=== PATIENT | male | born 1955 | race Caucasian/White ===

== ENCOUNTER 2020-01-26 14:50 | Inpatient (IN) | payer BC, OTHER ==
--- NOTE | 2020-01-26 15:01 | PDOC ---
Rapid Medical Evaluation Time Seen by Provider: 01/26/20 14:57 Medical Evaluation: 01/26/20 15:01 I have performed a brief in-person evaluation of this patient. CC: dysuria, headache and chills PE: T-100.0. Lungs CTAB. tremulous. Skin moist. No CVAT. Orders: FSBG. sepsis w/u. Patient will proceed to ED for further evaluation. 01/26/20 15:02 Discharge Disposition - Diagnosis Dysuria - Referrals - Patient Instructions - Post Discharge Activity
[2020-01-26] MEDS ORDERED: SODIUM CHLORIDE 0.9% 1000 ML INFUS.BAG IV SCH ×2 (15:15→15:16)
[2020-01-26] MEDS ORDERED: ACETAMINOPHEN INJECTION 100 ML IVPB ONE (15:29)
[2020-01-26] MEDS ORDERED: ACETAMINOPHEN 1000 MG/100 ML VIAL (NON FORMULARY) IVPB ONE (15:29)
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
[2020-01-26] MEDS ORDERED: PIPERACILLIN/TAZOB 4.5 GM 4.5 GM in DEXTROSE 5%-WATER 100 ML IVPB ONE (15:49)
[2020-01-26] MEDS: SODIUM CHLORIDE 0.9% 1000 ML INFUS.BAG IV SCH (15:53)
[2020-01-26] MEDS ORDERED: PIPERACILLIN/TAZOB 4.5 GM 4.5 GM/100 ML BAG IVPB ONE (15:55)
--- NOTE | 2020-01-26 15:56 | PDOC ---
Attending Attestation - Resident Resident Name: MagalyPamella - ED Attending Attestation I have performed the following: I have examined & evaluated the patient, The case was reviewed & discussed with the resident, I agree w/resident's findings & plan - HPI HPI: 01/26/20 15:51 64-year-old male history of diabetes presents with generalized weakness and confusion in the setting of fever for the last 24 hours, only localizing symptoms are polyuria and dysuria, decreased appetite today but otherwise normal physical activity, brought in by for severe generalized weakness. No recent travel, no known sick contacts, no other complaints. - Physicial Exam PE: 01/26/20 15:52 105.7 rectal fever, tachycardia, elevated blood pressure, O2 sat within normal limits on room air Initially very weak and only arousable to physical stimuli, became more alert and coherent and responsive once in stretcher with fluids initiated Warm to touch, atraumatic Neck supple, dry mucosa Heart is regular tachycardia, lungs are clear Abdomen is soft/nontender/nondistended. No notable bladder distention, no CVA tenderness Neuro nonfocal, no rash - Critical Care Time Total Critical Care Time: 70 Critical Care Statement: The care of this patient involved high complexity decision making to prevent further life threatening deterioration of the patient 's condition and/or to evaluate & treat vital organ system(s) failure or risk of failure. - Medical Decision Making 01/26/20 15:54 64-year-old male with diabetes presents with sepsis/altered mental status, possible urinary source, cardiopulmonary exam is within normal limits. Blood pressure stable. Sepsis protocol initiated IV fluids, antipyretics IV antibiotics initiated EKG, chest x-ray Reassess, admit 01/26/20 16:28 no leukocytosis, pH normal, chem pending. UA consistent with UTI, cxr clear iv abx, iv fluids admit Heart Score/ECG Review #1 ECG reviewed & interpreted by me at: 15:25 General ECG Interpretation: Sinus Rhythm (tachy at 121), Normal Intervals (qtc 414), No acute ischemic changes (inf and lateral ST depression without CESIA.) Discharge - Discharge Information Problems reviewed: Yes Clinical Impression/Diagnosis: Dysuria Sepsis Qualifiers: Sepsis type: sepsis due to unspecified organism Sepsis acute organ dysfunction status: unspecified Qualified Code(s): A41.9 - Sepsis, unspecified organism UTI (urinary tract infection) Qualifiers: Urinary tract infection type: site unspecified Hematuria presence: without hematuria Qualified Code(s): N39.0 - Urinary tract infection, site not specified Condition: Fair - Follow up/Referral - Patient Discharge Instructions - Post Discharge Activity
[2020-01-26 15:58] LABS: VENOUS BASE EXCESS -2.2 mmol/L (-2-2); VENOUS PCO2 47.3 mmHg (38-52); VENOUS PH 7.329 (7.310-7.410)
[2020-01-26 16:03] LABS: BASO % 0.5 % (0-2.0); EOS % 0.2 % (0-4.5); HEMATOCRIT 41.7 % (35.4-49); HEMOGLOBIN 14.1 GM/dL (11.7-16.9); MCH 31.3 pg (25.7-33.7); MCHC 33.7 g/dl (32.0-35.9); MEAN CELL VOLUME 92.7 fl (80-96); MEAN PLT VOLUME 8.9 fl (7.5-11.1); MONO % 0.7 % (3.8-10.2); NEUT % 65.6 % (42.8-82.8); PLATELET COUNT 116 K/MM3 (134-434); RDW 13.2 % (11.9-15.9); WHITE BLOOD COUNT 4.6 K/mm3 (4.0-10.0)
[2020-01-26 16:07] LABS: EPI CELLS 2 /uL (0-25.1); HYALINE CASTS 9 /uL (0-3.1); PH,URINE 5.5 (5.0-8.0); URINE APPEARANCE CLEAR; URINE BACTERIA 1554 /uL (0-1359); URINE BILIRUBIN 1+ (NEGATIVE); URINE COLOR ORANGE; URINE GLUCOSE (UA) 3+ (NEGATIVE); URINE KETONE TRACE (NEGATIVE); URINE LEUK ESTERASE TRACE (NEGATIVE); URINE NITRITE NEGATIVE (NEGATIVE); URINE PROTEIN 2+ (NEGATIVE); URINE RBC 53 /uL (0-23.9); URINE WBC 332 /uL (0-25.8)
[2020-01-26 16:09] LABS: INR 1.37 (0.83-1.09); PROTHROMBIN TIME (PATIENT) 16.2 SEC (9.7-13.0)
[2020-01-26 16:12] LABS: ACTIVATED PTT 30.3 SECONDS (25.2-36.5)
[2020-01-26 16:40] LABS: ALBUMIN 3.9 g/dl (3.4-5.0); BLOOD UREA NITROGEN 20.2 mg/dL (7-18); CALCIUM 9.2 mg/dL (8.5-10.1); CREATININE 1.2 mg/dL (0.55-1.3); POTASSIUM 3.6 mmol/L (3.5-5.1)
[2020-01-26 16:42] LABS: BILIRUBIN,TOTAL 2.6 mg/dL (0.2-1); TOT PROT 8.7 g/dl (6.4-8.2)
[2020-01-26] MEDS ORDERED: LACTATED RINGERS SOLUTION 1000 ML INFUS.BAG IV ONE (16:46)
[2020-01-26] MEDS ORDERED: KETOROLAC TROMETHAMINE 30 MG/1 ML VIAL IVPUSH ONE (17:06)
[2020-01-26] MEDS ORDERED: KETOROLAC TROMETHAMINE 30 MG/1 ML VIAL ONE (17:11)
--- NOTE | 2020-01-26 17:31 | HP ---
CHIEF COMPLAINT: fever PCP: HISTORY OF PRESENT ILLNESS: Patient is a 64 y/o male with a history of DM and Hep C (treated 3 years ago)who presents for fever and pain with urination. Patient reports he has been having these symptoms for a few days, he has been urinating much more frequently and has burning with urination. Patient has no back pain, and nly felt chills upon coming to the hospital in the rain. Has not had this before and does not take any medication for DM. ER course was notable for: (1) (2) (3) Recent Travel: PAST MEDICAL HISTORY: DM PAST SURGICAL HISTORY: testicular abscess drainage in the past Social History: Smoking: denies Alcohol: denies Drugs: denies Allergies No Known Allergies Allergy (Unverified 01/26/20 15:09) HOME MEDICATIONS: REVIEW OF SYSTEMS CONSTITUTIONAL: Absent: fever, chills, diaphoresis, generalized weakness, malaise, loss of appetite, weight change HEENT: Absent: rhinorrhea, nasal congestion, throat pain, throat swelling, difficulty swallowing, mouth swelling, ear pain, eye pain, visual changes CARDIOVASCULAR: Absent: chest pain, syncope, palpitations, irregular heart rate, lightheadedness, peripheral edema RESPIRATORY: Absent: cough, shortness of breath, dyspnea with exertion, orthopnea, wheezing, stridor, hemoptysis GASTROINTESTINAL: Absent: abdominal pain, abdominal distension, nausea, vomiting, diarrhea, constipation, melena, hematochezia GENITOURINARY: dysuria, frequency, urgency Absent: , hesitancy, hematuria, flank pain, genital pain MUSCULOSKELETAL: Absent: myalgia, arthralgia, joint swelling, back pain, neck pain SKIN: Absent: rash, itching, pallor HEMATOLOGIC/IMMUNOLOGIC: Absent: easy bleeding, easy bruising, lymphadenopathy, frequent infections ENDOCRINE: Absent: unexplained weight gain, unexplained weight loss, heat intolerance, cold intolerance NEUROLOGIC: Absent: headache, focal weakness or paresthesias, dizziness, unsteady gait, seizure, mental status changes, bladder or bowel incontinence PSYCHIATRIC: Absent: anxiety, depression, suicidal or homicidal ideation, hallucinations. PHYSICAL EXAMINATION Vital Signs Temperature 102.3 F H 01/26/20 17:05 Pulse Rate 109 H 01/26/20 15:06 Respiratory Rate 18 01/26/20 15:06 Blood Pressure 112/58 L 01/26/20 17:03 O2 Sat by Pulse Oximetry (%) 99 01/26/20 15:06 GENERAL: Awake, alert, and fully oriented, in no acute distress. HEAD: Normal with no signs of trauma. EYES: Pupils equal, round and reactive to light, extraocular movements intact, s EARS, NOSE, THROAT: Ears normal, nares patent, oropharynx clear without exudates. Moist mucous membranes. NECK: Normal range of motion, supple without lymphadenopathy, JVD, or masses. LUNGS: Breath sounds equal, clear to auscultation bilaterally. No wheezes, and no crackles. No accessory muscle use. HEART: Regular rate and rhythm, normal S1 and S2 without murmur, rub or gallop. ABDOMEN: Soft, nontender, not distended, normoactive bowel sounds, no guarding, no rebound, no masses. No hepatomegaly or splenomegaly. some fullness of lower abdomen MUSCULOSKELETAL: Normal range of motion at all joints. No bony deformities or tenderness. NEGATIVE CVA tenderness. LOWER EXTREMITIES: No peripheral edema. NEUROLOGICAL: Cranial nerves II-XII intact. Normal speech. Normal gait. SKIN: vitiligo on face CBC, BMP 01/26/20 15:38 01/26/20 15:38 ASSESSMENT/PLAN: Patient is a 64 y/o male with a history of DM and Hep C (treated 3 years ago)who is admitted for UTI. #sepsis 2/2 to UTI - AMS resolved quickly with 1 L fluid - UA grossly positive, f/u ucx - continue Zosyn to coverage for pseudomonas with uncontrolled DM - lactic high at 6, will continue to trend - coninue NS @ 100 - f/u renal and bladder US, want to r/o enlarged prostate - f/u ID #DM - f/u A1C - continue SS - patient not on nay treatment for DM, will need medication as outpatient #DVT ppx: Lovenox FEN - diabetic diet Dispo: monitor on med surg Family Medical History Family History: As Documented Visit type - Medication Review Med list reviewed for High Risk Meds patients 65 and older: Yes - Emergency Visit Emergency Visit: Yes ED Registration Date: 01/26/20 Care time: The patient presented to the Emergency Department on the above date and was hospitalized for further evaluation of their emergent condition. - New Patient This patient is new to me today: Yes Date on this admission: 01/27/20 - Critical Care Critical Care patient: No ATTENDING PHYSICIAN STATEMENT I saw and evaluated the patient. I reviewed the resident's note and discussed the case with the resident. I agree with the resident's findings and plan as documented. SUBJECTIVE: OBJECTIVE: ASSESSMENT AND PLAN:
[2020-01-26] MEDS: SODIUM CHLORIDE 1,000 ML IV SCH (18:03)
[2020-01-26] MEDS ORDERED: FLU VACCINE (FLULAVAL) PF 60 MCG/0.5 ML SYRINGE 2020-2021 IM ONE (20:49)
[2020-01-26 22:12] LABS: CHOLESTEROL 150 mg/dL (50-200); HDL CHOLESTEROL 37 mg/dL (40-60); LDL CHOLESTEROL (ONLY SJRH) 112 mg/dL (5-100); TRIGLYCERIDES 105 mg/dL (0-150)
--- NOTE | 2020-01-26 22:40 | PN ---
Teaching Attending Note Name of Resident: Farideh Mckee ATTENDING PHYSICIAN STATEMENT I saw and evaluated the patient. I reviewed the resident's note and discussed the case with the resident. I agree with the resident's findings and plan as documented. SUBJECTIVE: Patient seen and examined at bedside, admitted for sepsis 2/2 UTI, also has h/o T2DM uncontrolled lost to follow up w/ PCP. OBJECTIVE: GA vitiligo present on face, AAOx3, calm, NAD HEENT NC/AT, EOMI, neck supple, no acanthosis, no oral thrush Chest CTAB, no crackles CVS s1, s2+, RRR Abd slightly distended, NT, BS+ Ext no LE edema, no calf tenderness no CVA tenderness, mild suprapubic TTP Vital Signs (72 hours) 01/26/20 01/26/20 01/26/20 15:06 15:43 17:03 Temperature 100.0 F H 105.7 F H Pulse Rate 109 H Pulse Rate [ Right] Respiratory 18 Rate Blood Pressure 172/88 H Blood Pressure 112/58 L [Left Arm] O2 Sat by Pulse 99 Oximetry (%) 01/26/20 01/26/20 01/26/20 17:05 18:26 20:36 Temperature 102.3 F H 100.0 F H 99 F Pulse Rate 92 H Pulse Rate [ 100 H Right] Respiratory 19 19 Rate Blood Pressure 101/44 L Blood Pressure 122/89 [Left Arm] O2 Sat by Pulse 100 97 Oximetry (%) 01/26/20 01/27/20 01/27/20 20:56 01:00 05:00 Temperature 98.6 F 98.9 F Pulse Rate 74 66 Pulse Rate [ Right] Respiratory 19 18 18 Rate Blood Pressure 91/56 L 102/62 Blood Pressure [Left Arm] O2 Sat by Pulse 97 95 97 Oximetry (%) 01/27/20 11:03 Temperature 99.5 F Pulse Rate 68 Pulse Rate [ Right] Respiratory 18 Rate Blood Pressure 112/67 Blood Pressure [Left Arm] O2 Sat by Pulse 98 Oximetry (%) Microbiology 01/26/20 15:38 Blood - Peripheral Venous Blood Culture - Preliminary Pending Organism 01/26/20 15:38 Blood - Peripheral Venous Blood Culture - Preliminary Pending Organism Laboratory Results - last 24 hr 01/26/20 01/26/20 01/26/20 15:38 15:38 15:38 WBC 4.6 RBC 4.50 Hgb 14.1 Hct 41.7 MCV 92.7 MCH 31.3 MCHC 33.7 RDW 13.2 Plt Count 116 L MPV 8.9 Absolute Neuts (auto) 3.0 Neutrophils % 65.6 Lymphocytes % 33.0 Monocytes % 0.7 L Eosinophils % 0.2 Basophils % 0.5 Nucleated RBC % 0 PT with INR 16.20 H INR 1.37 H PTT (Actin FS) 30.3 VBG pH POC VBG pCO2 POC VBG pO2 VBG HCO3 VBG O2 Sat (Angela) VBG Base Excess Sodium Potassium Chloride Carbon Dioxide Anion Gap BUN Creatinine Est GFR (CKD-EPI)AfAm Est GFR (CKD-EPI)NonAf POC Glucometer Random Glucose Hemoglobin A1c % Lactic Acid Calcium Phosphorus Magnesium Total Bilirubin AST ALT Alkaline Phosphatase Creatine Kinase Troponin I < 0.02 Total Protein Albumin Triglycerides 105 Cholesterol 150 Total LDL Cholesterol 112 H HDL Cholesterol 37 L TSH 2.07 Urine Color Urine Appearance Urine pH Ur Specific [place] Urine Protein Urine Glucose (UA) Urine Ketones Urine Blood Urine Nitrite Urine Bilirubin Urine Urobilinogen Ur Leukocyte Esterase Urine WBC (Auto) Urine RBC (Auto) Urine Casts (Auto) U Epithel Cells (Auto) Urine Bacteria (Auto) 01/26/20 01/26/20 01/26/20 15:38 15:38 15:38 WBC RBC Hgb Hct MCV MCH MCHC RDW Plt Count MPV Absolute Neuts (auto) Neutrophils % Lymphocytes % Monocytes % Eosinophils % Basophils % Nucleated RBC % PT with INR INR PTT (Actin FS) VBG pH POC VBG pCO2 POC VBG pO2 VBG HCO3 VBG O2 Sat (Angela) VBG Base Excess Sodium 134 L Potassium 3.6 Chloride 99 Carbon Dioxide 24 Anion Gap 11 BUN 20.2 H Creatinine 1.2 Est GFR (CKD-EPI)AfAm 72.59 Est GFR (CKD-EPI)NonAf 62.63 POC Glucometer Random Glucose 241 H Hemoglobin A1c % Lactic Acid 6.4 H* Calcium 9.2 Phosphorus Magnesium Total Bilirubin 2.6 H AST 22 ALT 31 Alkaline Phosphatase 104 Creatine Kinase 74 Troponin I Total Protein 8.7 H Albumin 3.9 Triglycerides Cholesterol Total LDL Cholesterol HDL Cholesterol TSH Urine Color [place] Urine Appearance Clear Urine pH 5.5 Ur Specific [place] 1.035 Urine Protein 2+ H Urine Glucose (UA) 3+ H Urine Ketones Trace H Urine Blood 1+ H Urine Nitrite Negative Urine Bilirubin 1+ H Urine Urobilinogen 1.0 Ur Leukocyte Esterase Trace Urine WBC (Auto) 332 Urine RBC (Auto) 53 Urine Casts (Auto) 9 U Epithel Cells (Auto) 2 Urine Bacteria (Auto) 1554 01/26/20 01/26/20 01/26/20 15:38 18:04 18:26 WBC RBC Hgb Hct MCV MCH MCHC RDW Plt Count MPV Absolute Neuts (auto) Neutrophils % Lymphocytes % Monocytes % Eosinophils % Basophils % Nucleated RBC % PT with INR INR PTT (Actin FS) VBG pH 7.329 POC VBG pCO2 47.3 POC VBG pO2 23.4 L VBG HCO3 24.3 VBG O2 Sat (Angela) 37.0 L VBG Base Excess -2.2 L Sodium Potassium Chloride Carbon Dioxide Anion Gap BUN Creatinine Est GFR (CKD-EPI)AfAm Est GFR (CKD-EPI)NonAf POC Glucometer Random Glucose Hemoglobin A1c % 9.8 H Lactic Acid 2.6 H* Calcium Phosphorus Magnesium Total Bilirubin AST ALT Alkaline Phosphatase Creatine Kinase Troponin I Total Protein Albumin Triglycerides Cholesterol Total LDL Cholesterol HDL Cholesterol TSH Urine Color Urine Appearance Urine pH Ur Specific [place] Urine Protein Urine Glucose (UA) Urine Ketones Urine Blood Urine Nitrite Urine Bilirubin Urine Urobilinogen Ur Leukocyte Esterase Urine WBC (Auto) Urine RBC (Auto) Urine Casts (Auto) U Epithel Cells (Auto) Urine Bacteria (Auto) 01/27/20 01/27/20 01/27/20 05:44 07:35 07:35 WBC 10.4 H RBC 3.82 L Hgb 11.9 Hct 35.1 L D MCV 91.9 MCH 31.1 MCHC 33.9 RDW 13.2 Plt Count 79 L D MPV 9.4 Absolute Neuts (auto) 7.5 Neutrophils % 72.0 Lymphocytes % 17.7 D Monocytes % 8.9 D Eosinophils % 1.1 D Basophils % 0.3 Nucleated RBC % 0 PT with INR INR PTT (Actin FS) VBG pH POC VBG pCO2 POC VBG pO2 VBG HCO3 VBG O2 Sat (Angela) VBG Base Excess Sodium 137 Potassium 3.5 Chloride 107 Carbon Dioxide 26 Anion Gap 4 L BUN 18.2 H Creatinine 0.9 Est GFR (CKD-EPI)AfAm 102.79 Est GFR (CKD-EPI)NonAf 88.69 POC Glucometer 164 Random Glucose 159 H Hemoglobin A1c % Lactic Acid Calcium 8.3 L Phosphorus 2.0 L Magnesium 1.8 Total Bilirubin 1.6 H AST 22 ALT 22 Alkaline Phosphatase 69 Creatine Kinase Troponin I Total Protein 6.6 Albumin 2.9 L Triglycerides Cholesterol Total LDL Cholesterol HDL Cholesterol TSH Urine Color Urine Appearance Urine pH Ur Specific [place] Urine Protein Urine Glucose (UA) Urine Ketones Urine Blood Urine Nitrite Urine Bilirubin Urine Urobilinogen Ur Leukocyte Esterase Urine WBC (Auto) Urine RBC (Auto) Urine Casts (Auto) U Epithel Cells (Auto) Urine Bacteria (Auto) 01/27/20 10:55 WBC RBC Hgb Hct MCV MCH MCHC RDW Plt Count MPV Absolute Neuts (auto) Neutrophils % Lymphocytes % Monocytes % Eosinophils % Basophils % Nucleated RBC % PT with INR INR PTT (Actin FS) VBG pH POC VBG pCO2 POC VBG pO2 VBG HCO3 VBG O2 Sat (Angela) VBG Base Excess Sodium Potassium Chloride Carbon Dioxide Anion Gap BUN Creatinine Est GFR (CKD-EPI)AfAm Est GFR (CKD-EPI)NonAf POC Glucometer 190 Random Glucose Hemoglobin A1c % Lactic Acid Calcium Phosphorus Magnesium Total Bilirubin AST ALT Alkaline Phosphatase Creatine Kinase Troponin I Total Protein Albumin Triglycerides Cholesterol Total LDL Cholesterol HDL Cholesterol TSH Urine Color Urine Appearance Urine pH Ur Specific [place] Urine Protein Urine Glucose (UA) Urine Ketones Urine Blood Urine Nitrite Urine Bilirubin Urine Urobilinogen Ur Leukocyte Esterase Urine WBC (Auto) Urine RBC (Auto) Urine Casts (Auto) U Epithel Cells (Auto) Urine Bacteria (Auto) Home Medications Medication Instructions Recorded NK [No Known Home Medication] 01/26/20 Current Medications Generic Name Dose Route Start Last Admin Trade Name [place] PRN Reason Stop Dose Admin Acetaminophen 650 mg 01/26/20 17:21 Tylenol - PO Q4H PRN PAIN LEVEL 6-10 Enoxaparin Sodium 40 mg 01/27/20 10:00 01/27/20 10:50 Lovenox - SQ 40 mg DAILY ISAAK Administration Sodium Chloride 1,000 mls @ 100 mls/hr 01/26/20 17:30 01/27/20 06:17 Normal Saline - IV 01/28/20 03:29 100 mls/hr ASDIR ISAAK Administration Piperacillin Sod/Tazobactam 50 mls @ 100 mls/hr 01/27/20 10:00 01/27/20 10:50 Sod 3.375 gm/ Dextrose IVPB 100 mls/hr Q8H-IV ISAAK Administration Protocol Insulin Aspart 0 vial 01/27/20 07:00 01/27/20 10:57 Novolog Vial Sliding Scale - SQ 2 unit TIDAC ISAAK Administration Protocol Sodium Chloride 2,000 ml 01/26/20 15:41 01/26/20 15:53 Normal Saline - IV 2,000 ml ONCE ISAAK Administration ASSESSMENT AND PLAN: 64 M Sepsis 2/2 UTI T2DM uncontrolled Lactic acidosis Vitiligo CORY on CKD Cholestasis Plan: Hydrate aggressively and trend LA Send a1c/lipids/TSH panel Obtain renal/bladder US w/ PVR to r/o obstruction IV Zosyn for sepsis (to cover for Pseudomonas given T2DM) ID evaluation Renal evaluation for CORY/proteinuria DVT ppx: lovenox SC
[2020-01-27] MEDS ORDERED: PIPERACILLIN/TAZOBACTAM 4.5 GM VIAL IVPB ONE ×2 (01:03→01:10)
[2020-01-27] MEDS ORDERED: DEXTROSE 5%-WATER 100 ML IVPB ONE ×2 (01:03→01:10)
[2020-01-27] MEDS ORDERED: PIPERACILLIN/TAZOB 4.5 GM 4.5 GM in DEXTROSE 5%-WATER 100 ML IVPB SCH ×2 (01:15→02:00)
[2020-01-27] MEDS ORDERED: INSULIN (NOVOLOG) ASPART 100 UNITS/ML 10ML VIAL ONE ×2 (06:11→06:36)
[2020-01-27] MEDS: INSULIN SLIDING SCALE (NOVOLOG) 1 VIAL SQ SCH ×3 (06:16→17:44)
[2020-01-27] MEDS: SODIUM CHLORIDE 1,000 ML IV SCH (06:17)
[2020-01-27 08:25] LABS: ALBUMIN 2.9 g/dl (3.4-5.0); BILIRUBIN,TOTAL 1.6 mg/dL (0.2-1); BLOOD UREA NITROGEN 18.2 mg/dL (7-18); CALCIUM 8.3 mg/dL (8.5-10.1); CREATININE 0.9 mg/dL (0.55-1.3); MAGNESIUM 1.8 mg/dL (1.8-2.4); POTASSIUM 3.5 mmol/L (3.5-5.1)
[2020-01-27 08:27] LABS: BASO % 0.3 % (0-2.0); EOS % 1.1 % (0-4.5); HEMATOCRIT 35.1 % (35.4-49); HEMOGLOBIN 11.9 GM/dL (11.7-16.9); LYMPH % 17.7 % (8-40); MCH 31.1 pg (25.7-33.7); MCHC 33.9 g/dl (32.0-35.9); MEAN CELL VOLUME 91.9 fl (80-96); MEAN PLT VOLUME 9.4 fl (7.5-11.1); MONO % 8.9 % (3.8-10.2); PLATELET COUNT 79 K/MM3 (134-434); RBC 3.82 M/mm3 (4.00-5.60); RDW 13.2 % (11.9-15.9); TOT PROT 6.6 g/dl (6.4-8.2); WHITE BLOOD COUNT 10.4 K/mm3 (4.0-10.0)
--- NOTE | 2020-01-27 09:27 | CON.ID ---
Consult Consult Specialty:: infectious diseases Referred by:: hospitalist Reason for Consultation:: sepsis,gm megaitve abcteremia,fever - History of Present Illness Chief Complaint: fever,weakness History of Present Illness: 64 y/o male with a history of DM and Hep C (treated 3 years ago)who presents for fever and pain with urination. Patient reports he has been having these symptoms for a few days, he has been urinating much more frequently and has burning with urination. Patient has no back pain, and nly felt chills upon coming to the hospital in the rain. Has not had this before and does not take any medication for DM. patient was worked up and found to ahve positive blood cx and also still c/o of burning in urine - History Source History Provided By: Patient Limitations to Obtaining History: No Limitations - Smoking History Smoking history: Never smoked Have you smoked in the past 12 months: No Home Medications - Allergies Allergies/Adverse Reactions: Allergies Allergy/AdvReac Type Severity Reaction Status Date / Time No Known Allergies Allergy Unverified 01/26/20 15:09 - Home Medications Home Medications: Ambulatory Orders NK [No Known Home Medication] 01/26/20 Review of Systems - Review of Systems Constitutional: reports: Fever, Weakness, Other Eyes: reports: No Symptoms HENT: reports: No Symptoms, Ocular Prosthesis Cardiovascular: reports: No Symptoms Respiratory: reports: No Symptoms Gastrointestinal: reports: No Symptoms Genitourinary: reports: Burning, Other Musculoskeletal: reports: No Symptoms Integumentary: reports: No Symptoms Neurological: reports: No Symptoms Endocrine: reports: No Symptoms Hematology/Lymphatic: reports: No Symptoms Psychiatric: reports: No Symptoms Physical Exam Vital Signs: Vital Signs Temperature 98.9 F 01/27/20 05:00 Pulse Rate 66 01/27/20 05:00 Respiratory Rate 18 01/27/20 05:00 Blood Pressure 102/62 01/27/20 05:00 O2 Sat by Pulse Oximetry (%) 97 01/27/20 05:00 Constitutional: Yes: Calm, Mild Distress Eyes: Yes: Conjunctiva Clear HENT: Yes: Atraumatic, Normocephalic Neck: Yes: Supple, Trachea Midline Cardiovascular: Yes: Regular Rate and Rhythm Respiratory: Yes: Regular, CTA Bilaterally Gastrointestinal: Yes: Normal Bowel Sounds, Soft Musculoskeletal: Yes: WNL Extremities: Yes: WNL Neurological: Yes: Alert, Oriented Psychiatric: Yes: Alert, Oriented Labs: CBC, BMP 01/27/20 07:35 01/27/20 07:35 Imaging - Results Chest X-ray: Report Reviewed, Image Reviewed Ultrasound: Report Reviewed Assessment/Plan Problem List - Problems (1) Sepsis Code(s): A41.9 - SEPSIS, UNSPECIFIED ORGANISM Qualifiers: Sepsis type: sepsis due to unspecified organism Sepsis acute organ dysf unction status: unspecified Qualified Code(s): A41.9 - Sepsis, unspecified organism (2) Bacteremia Code(s): R78.81 - BACTEREMIA (3) Diabetes type 2, uncontrolled Code(s): E11.65 - TYPE 2 DIABETES MELLITUS WITH HYPERGLYCEMIA (4) Thrombocytopenia Code(s): D69.6 - THROMBOCYTOPENIA, UNSPECIFIED (5) Dysuria Code(s): R30.0 - DYSURIA (6) UTI (urinary tract infection) Code(s): N39.0 - URINARY TRACT INFECTION, SITE NOT SPECIFIED Qualifiers: Urinary tract infection type: site unspecified Hematuria presence: without hematuria Qualified Code(s): N39.0 - Urinary tract infection, site not specified plan patient is septic await for cx reports will start on zosyn await for identification of the bacteria monitor closely
[2020-01-27] MEDS ORDERED: PIPERACILLIN/TAZOBACTAM 3.375 GM VIAL IVPB ONE ×2 (10:44→16:49)
[2020-01-27] MEDS ORDERED: DEXTROSE 5%-WATER - 50 ML IVPB ONE ×2 (10:44→16:49)
[2020-01-27] MEDS: ENOXAPARIN NA (PORCINE) 40 MG/0.4 ML DISP.SYRIN SQ SCH (10:50)
[2020-01-27] MEDS: PIPERACILLIN/TAZOB 3.375 GM 3.375 GM in DEXTROSE 5%-WATER - 50 ML IVPB SCH ×3 (10:50→17:47)
--- NOTE | 2020-01-27 11:06 | EKG ---
Test Reason : Blood Pressure : / mmHG Vent. Rate : 121 BPM Atrial Rate : 121 BPM P-R Int : 156 ms QRS Dur : 092 ms QT Int : 292 ms P-R-T Axes : 062 055 015 degrees QTc Int : 414 ms SINUS TACHYCARDIA ABNORMAL ECG NO PREVIOUS ECGS AVAILABLE Confirmed by MD Adelso, Sma ([id number]) on 01/27/2020 11:05:34 AM Referred By: Confirmed By:Sam Darden MD
--- NOTE | 2020-01-27 13:11 | ECHO ---
Name: YAMILEX CUNNINGHAM Exam:Adult Echocardiogram Study Date: 01/27/2020 12:28 PM Age: 64 yrs Reason For Study: bacteremia Height: 69 in Weight: 175 lb BSA: 2.0 m2 MMode/2D Measurements & Calculations IVSd: 0.96 cm Ao root diam: 2.8 cm LVIDd: 4.7 cm LA dimension: 3.2 cm LVIDs: 3.1 cm LVPWd: 0.90 cm EDV(Teich): 103.7 ml LVOT diam: 2.0 cm ESV(Teich): 36.5 ml LAV (MOD-bp): 58.2 ml Doppler Measurements & Calculations MV E max braeden: 98.8 cm/sec Ao V2 max: 145.3 cm/sec MV A max braeden: 79.2 cm/sec Ao max P.5 mmHg MV E/A: 1.2 AI P1/2t: 754.4 msec MV dec time: 0.12 sec CAMMY(V,D): 2.3 cm2 AI max braeden: 257.3 cm/sec LV V1 max P.7 mmHg AI max P.5 mmHg LV V1 max: 109.0 cm/sec AI dec slope: 99.9 cm/sec2 MR max braeden: 510.7 cm/sec TR max braeden: 298.7 cm/sec MR max P.4 mmHg TR max P.9 mmHg PA V2 max: 101.9 cm/sec Med Peak E' Braeden: 9.1 cm/sec PA max P.2 mmHg Med E/e': 10.8 Lat Peak E' Braeden: 13.5 cm/sec Lat E/e': 7.3 PI Vmax: 172.1 cm/sec Procedure A two-dimensional transthoracic echocardiogram with color flow and Doppler was performed. The patient was in normal sinus rhythm during the exam. Left Ventricle The left ventricular size, thickness and function are normal. Ejection Fraction = 60%. The transmitra l spectral Doppler flow pattern is suggestive of impaired LV relaxation. Right Ventricle The right ventricle is normal in size and function. Atria Normal left and right atrial size and function. Mitral Valve The mitral valve is grossly normal. There is mild mitral regurgitation. Tricuspid Valve The tricuspid valve is not well visualized, but is grossly normal. There is mild tricuspid regurgitat ion. There is mild pulmonary hypertension. Aortic Valve The aortic valve is trileaflet. No hemodynamically significant valvular aortic stenosis. Pulmonic Valve The pulmonic valve is not well visualized. Great Vessels The aortic root is normal size. Pericardium/Pleura There is no pericardial effusion. Interpretation Summary A two-dimensional transthoracic echocardiogram with color flow and Doppler was performed. The left ventricular size, thickness and function are normal Normal left and right atrial size and function. There is mild mitral regurgitation. There is mild tricuspid regurgitation. There is mild pulmonary hypertension. No hemodynamically significant valvular aortic stenosis. MD Sam Darden 01/27/2020 01:11 PM
--- NOTE | 2020-01-27 15:48 | PN ---
Physical Exam: SUBJECTIVE: Patient seen and examined at the bedside. ambulating around room, in no acute distress. denies pain. OBJECTIVE: Patient is a 64 year old male with a history of DM and Hep C (treated 3 years ago) who presents to the ED on 01/26/2020 for fever and pain with urination. Vital Signs Period Temp Pulse Resp BP Sys/Herbert Pulse Ox Last 24 Hr 98.6 F-102.3 F 66-100 18-19 91-122/44-89 95-100 GENERAL: The patient is awake, alert, and fully oriented, in no acute distress. HEAD: Normal with no signs of trauma. EYES: PERRL, extraocular movements intact, sclera anicteric, conjunctiva clear. No ptosis. ENT: Ears normal, nares patent, oropharynx clear without exudates NECK: Trachea midline, full range of motion, supple. LUNGS: Breath sounds equal, clear to auscultation bilaterally HEART: Regular rate and rhythm ABDOMEN: Soft, nontender, nondistended, normoactive bowel sounds EXTREMITIES: no edema. NEUROLOGICAL: Normal speech, gait steady PSYCH: Normal mood, normal affect. SKIN: Warm, dry, normal turgor, no rashes or lesions noted Laboratory Results - last 24 hr 01/26/20 01/26/20 01/26/20 15:38 15:38 15:38 WBC 4.6 RBC 4.50 Hgb 14.1 Hct 41.7 MCV 92.7 MCH 31.3 MCHC 33.7 RDW 13.2 Plt Count 116 L MPV 8.9 Absolute Neuts (auto) 3.0 Neutrophils % 65.6 Lymphocytes % 33.0 Monocytes % 0.7 L Eosinophils % 0.2 Basophils % 0.5 Nucleated RBC % 0 PT with INR 16.20 H INR 1.37 H PTT (Actin FS) 30.3 VBG pH POC VBG pCO2 POC VBG pO2 VBG HCO3 VBG O2 Sat (Angela) VBG Base Excess Sodium Potassium Chloride Carbon Dioxide Anion Gap BUN Creatinine Est GFR (CKD-EPI)AfAm Est GFR (CKD-EPI)NonAf POC Glucometer Random Glucose Hemoglobin A1c % Lactic Acid Calcium Phosphorus Magnesium Total Bilirubin AST ALT Alkaline Phosphatase Creatine Kinase Troponin I < 0.02 Total Protein Albumin Triglycerides 105 Cholesterol 150 Total LDL Cholesterol 112 H HDL Cholesterol 37 L TSH 2.07 Urine Color Urine Appearance Urine pH Ur Specific Bruno Urine Protein Urine Glucose (UA) Urine Ketones Urine Blood Urine Nitrite Urine Bilirubin Urine Urobilinogen Ur Leukocyte Esterase Urine WBC (Auto) Urine RBC (Auto) Urine Casts (Auto) U Epithel Cells (Auto) Urine Bacteria (Auto) 01/26/20 01/26/20 01/26/20 15:38 15:38 15:38 WBC RBC Hgb Hct MCV MCH MCHC RDW Plt Count MPV Absolute Neuts (auto) Neutrophils % Lymphocytes % Monocytes % Eosinophils % Basophils % Nucleated RBC % PT with INR INR PTT (Actin FS) VBG pH POC VBG pCO2 POC VBG pO2 VBG HCO3 VBG O2 Sat (Angela) VBG Base Excess Sodium 134 L Potassium 3.6 Chloride 99 Carbon Dioxide 24 Anion Gap 11 BUN 20.2 H Creatinine 1.2 Est GFR (CKD-EPI)AfAm 72.59 Est GFR (CKD-EPI)NonAf 62.63 POC Glucometer Random Glucose 241 H Hemoglobin A1c % Lactic Acid 6.4 H* Calcium 9.2 Phosphorus Magnesium Total Bilirubin 2.6 H AST 22 ALT 31 Alkaline Phosphatase 104 Creatine Kinase 74 Troponin I Total Protein 8.7 H Albumin 3.9 Triglycerides Cholesterol Total LDL Cholesterol HDL Cholesterol TSH Urine Color [place] Urine Appearance Clear Urine pH 5.5 Ur Specific Bruno 1.035 Urine Protein 2+ H Urine Glucose (UA) 3+ H Urine Ketones Trace H Urine Blood 1+ H Urine Nitrite Negative Urine Bilirubin 1+ H Urine Urobilinogen 1.0 Ur Leukocyte Esterase Trace Urine WBC (Auto) 332 Urine RBC (Auto) 53 Urine Casts (Auto) 9 U Epithel Cells (Auto) 2 Urine Bacteria (Auto) 1554 01/26/20 01/26/20 01/26/20 15:38 18:04 18:26 WBC RBC Hgb Hct MCV MCH MCHC RDW Plt Count MPV Absolute Neuts (auto) Neutrophils % Lymphocytes % Monocytes % Eosinophils % Basophils % Nucleated RBC % PT with INR INR PTT (Actin FS) VBG pH 7.329 POC VBG pCO2 47.3 POC VBG pO2 23.4 L VBG HCO3 24.3 VBG O2 Sat (Angela) 37.0 L VBG Base Excess -2.2 L Sodium Potassium Chloride Carbon Dioxide Anion Gap BUN Creatinine Est GFR (CKD-EPI)AfAm Est GFR (CKD-EPI)NonAf POC Glucometer Random Glucose Hemoglobin A1c % 9.8 H Lactic Acid 2.6 H* Calcium Phosphorus Magnesium Total Bilirubin AST ALT Alkaline Phosphatase Creatine Kinase Troponin I Total Protein Albumin Triglycerides Cholesterol Total LDL Cholesterol HDL Cholesterol TSH Urine Color Urine Appearance Urine pH Ur Specific Bruno Urine Protein Urine Glucose (UA) Urine Ketones Urine Blood Urine Nitrite Urine Bilirubin Urine Urobilinogen Ur Leukocyte Esterase Urine WBC (Auto) Urine RBC (Auto) Urine Casts (Auto) U Epithel Cells (Auto) Urine Bacteria (Auto) 01/27/20 01/27/20 01/27/20 05:44 07:35 07:35 WBC 10.4 H RBC 3.82 L Hgb 11.9 Hct 35.1 L D MCV 91.9 MCH 31.1 MCHC 33.9 RDW 13.2 Plt Count 79 L D MPV 9.4 Absolute Neuts (auto) 7.5 Neutrophils % 72.0 Lymphocytes % 17.7 D Monocytes % 8.9 D Eosinophils % 1.1 D Basophils % 0.3 Nucleated RBC % 0 PT with INR INR PTT (Actin FS) VBG pH POC VBG pCO2 POC VBG pO2 VBG HCO3 VBG O2 Sat (Angela) VBG Base Excess Sodium 137 Potassium 3.5 Chloride 107 Carbon Dioxide 26 Anion Gap 4 L BUN 18.2 H Creatinine 0.9 Est GFR (CKD-EPI)AfAm 102.79 Est GFR (CKD-EPI)NonAf 88.69 POC Glucometer 164 Random Glucose 159 H Hemoglobin A1c % Lactic Acid Calcium 8.3 L Phosphorus 2.0 L Magnesium 1.8 Total Bilirubin 1.6 H AST 22 ALT 22 Alkaline Phosphatase 69 Creatine Kinase Troponin I Total Protein 6.6 Albumin 2.9 L Triglycerides Cholesterol Total LDL Cholesterol HDL Cholesterol TSH Urine Color Urine Appearance Urine pH Ur Specific Bruno Urine Protein Urine Glucose (UA) Urine Ketones Urine Blood Urine Nitrite Urine Bilirubin Urine Urobilinogen Ur Leukocyte Esterase Urine WBC (Auto) Urine RBC (Auto) Urine Casts (Auto) U Epithel Cells (Auto) Urine Bacteria (Auto) 01/27/20 01/27/20 10:42 10:55 WBC RBC Hgb Hct MCV MCH MCHC RDW Plt Count MPV Absolute Neuts (auto) Neutrophils % Lymphocytes % Monocytes % Eosinophils % Basophils % Nucleated RBC % PT with INR INR PTT (Actin FS) VBG pH POC VBG pCO2 POC VBG pO2 VBG HCO3 VBG O2 Sat (Angela) VBG Base Excess Sodium Potassium Chloride Carbon Dioxide Anion Gap BUN Creatinine Est GFR (CKD-EPI)AfAm Est GFR (CKD-EPI)NonAf POC Glucometer 190 Random Glucose Hemoglobin A1c % Lactic Acid 1.5 Calcium Phosphorus Magnesium Total Bilirubin AST ALT Alkaline Phosphatase Creatine Kinase Troponin I Total Protein Albumin Triglycerides Cholesterol Total LDL Cholesterol HDL Cholesterol TSH Urine Color Urine Appearance Urine pH Ur Specific Bruno Urine Protein Urine Glucose (UA) Urine Ketones Urine Blood Urine Nitrite Urine Bilirubin Urine Urobilinogen Ur Leukocyte Esterase Urine WBC (Auto) Urine RBC (Auto) Urine Casts (Auto) U Epithel Cells (Auto) Urine Bacteria (Auto) Active Medications Generic Name Dose Route Start Last Admin Trade Name Freq PRN Reason Stop Dose Admin Acetaminophen 650 mg 01/26/20 17:21 Tylenol - PO Q4H PRN PAIN LEVEL 6-10 Enoxaparin Sodium 40 mg 01/27/20 10:00 01/27/20 10:50 Lovenox - SQ 40 mg DAILY ISAAK Administration Sodium Chloride 1,000 mls @ 100 mls/hr 01/26/20 17:30 01/27/20 06:17 Normal Saline - IV 01/28/20 03:29 100 mls/hr ASDIR ISAAK Administration Piperacillin Sod/Tazobactam 50 mls @ 100 mls/hr 01/27/20 10:00 01/27/20 10:50 Sod 3.375 gm/ Dextrose IVPB 100 mls/hr Q8H-IV ISAAK Administration Protocol Insulin Aspart 0 vial 01/27/20 07:00 01/27/20 10:57 Novolog Vial Sliding Scale - SQ 2 unit TIDAC ISAAK Administration Protocol Sodium Chloride 2,000 ml 01/26/20 15:41 01/26/20 15:53 Normal Saline - IV 2,000 ml ONCE ISAAK Administration ASSESSMENT/PLAN: Problem List - Problems (1) Sepsis Assessment/Plan: patient with leukocytosis and + blood cultures on zosyn per ID monitor labs, vitals signs echo ordered Code(s): A41.9 - SEPSIS, UNSPECIFIED ORGANISM Qualifiers: Sepsis type: sepsis due to unspecified organism Sepsis acute organ dysfunction status: unspecified Qualified Code(s): A41.9 - Sepsis, unspecified organism (2) Bacteremia Assessment/Plan: blood cultures with pending organism-gram negative bacilli on zosyn per ID will repeat blood cultures Code(s): R78.81 - BACTEREMIA (3) Diabetes type 2, uncontrolled Assessment/Plan: patient does not take any home medications for diabetes. ha1c shows uncontrolled diabetes with elevated bgms. started on novlog sliding scale. will need ome insulin and teaching how to do a sliding scale. monitor bgms Code(s): E11.65 - TYPE 2 DIABETES MELLITUS WITH HYPERGLYCEMIA (4) Thrombocytopenia Assessment/Plan: unclear etiology of low platelets but may be in the setting of sepsis. no prior labs to compare monitor while on lovenox Code(s): D69.6 - THROMBOCYTOPENIA, UNSPECIFIED (5) Dysuria Code(s): R30.0 - DYSURIA (6) UTI (urinary tract infection) Assessment/Plan: sepis in the setting of UTI and now with positive blood cultures UC pending UA positive Code(s): N39.0 - URINARY TRACT INFECTION, SITE NOT SPECIFIED Qualifiers: Urinary tract infection type: site unspecified Hematuria presence: without hematuria Qualified Code(s): N39.0 - Urinary tract infection, site not specified (7) DVT prophylaxis Assessment/Plan: on lovenox 40mg daily Code(s): Z29.9 - ENCOUNTER FOR PROPHYLACTIC MEASURES, UNSPECIFIED Visit type - Emergency Visit Emergency Visit: Yes ED Registration Date: 01/26/20 Care time: The patient presented to the Emergency Department on the above date and was hospitalized for further evaluation of their emergent condition. - New Patient This patient is new to me today: Yes Date on this admission: 01/27/20 - Critical Care Critical Care patient: No - Discharge Referral Referred to [facility] Med P.C.: Yes - Medication Review Med list reviewed for High Risk Meds patients 65 and older: Yes
[2020-01-27] MEDS ORDERED: SODIUM CHLORIDE 1,000 ML IV SCH (16:19)
[2020-01-27] MEDS: SODIUM CHLORIDE 0.9% 1000 ML INFUS.BAG IV SCH (16:49)
[2020-01-27] MEDS: ACETAMINOPHEN 325 MG TABLET (FP) PO PRN (20:55)
[2020-01-28] MEDS ORDERED: DEXTROSE 5%-WATER - 50 ML IVPB ONE ×3 (01:14→17:53)
[2020-01-28] MEDS ORDERED: PIPERACILLIN/TAZOBACTAM 3.375 GM VIAL IVPB ONE ×3 (01:14→17:53)
[2020-01-28] MEDS: PIPERACILLIN/TAZOB 3.375 GM 3.375 GM in DEXTROSE 5%-WATER - 50 ML IVPB SCH ×3 (01:47→18:04)
[2020-01-28] MEDS: INSULIN SLIDING SCALE (NOVOLOG) 1 VIAL SQ SCH ×3 (06:30→18:04)
[2020-01-28] MEDS: ACETAMINOPHEN 325 MG TABLET (FP) PO PRN ×3 (06:31→21:18)
[2020-01-28 08:39] LABS: BASO % 0.3 % (0-2.0); EOS % 1.7 % (0-4.5); HEMATOCRIT 34.1 % (35.4-49); HEMOGLOBIN 11.7 GM/dL (11.7-16.9); LYMPH % 18.1 % (8-40); MCH 31.7 pg (25.7-33.7); MCHC 34.4 g/dl (32.0-35.9); MEAN PLT VOLUME 9.9 fl (7.5-11.1); MONO % 9.4 % (3.8-10.2); NEUT % 70.5 % (42.8-82.8); PLATELET COUNT 81 K/MM3 (134-434); RBC 3.71 M/mm3 (4.00-5.60); RDW 13.4 % (11.9-15.9); WHITE BLOOD COUNT 7.1 K/mm3 (4.0-10.0)
--- NOTE | 2020-01-28 08:53 | PN ---
Progress Note, Physician History of Present Illness: feeling better today still spiking fevers - Current Medication List Current Medications: Active Medications Acetaminophen (Tylenol -) 650 mg PO Q4H PRN PRN Reason: PAIN LEVEL 6-10 Last Admin: 01/28/20 06:31 Dose: 650 mg Documented by: Enoxaparin Sodium (Lovenox -) 40 mg SQ DAILY ISAAK Last Admin: 01/27/20 10:50 Dose: 40 mg Documented by: Piperacillin Sod/Tazobactam (Sod 3.375 gm/ Dextrose) 50 mls @ 100 mls/hr IVPB Q8H-IV ISAAK; Protocol Last Admin: 01/28/20 01:47 Dose: 100 mls/hr Documented by: Sodium Chloride (Normal Saline -) 1,000 mls @ 50 mls/hr IV ASDIR ISAAK Last Admin: 01/27/20 18:00 Dose: 50 mls/hr Documented by: Insulin Aspart (Novolog Vial Sliding Scale -) 0 vial SQ TIDAC ISAAK; Protocol Last Admin: 01/28/20 06:30 Dose: 2 unit Documented by: - Objective Vital Signs: Vital Signs Temperature 99.4 F 01/28/20 05:00 Pulse Rate 76 01/28/20 05:00 Respiratory Rate 18 01/28/20 05:00 Blood Pressure 139/71 01/28/20 05:00 O2 Sat by Pulse Oximetry (%) 94 L 01/28/20 05:00 Constitutional: Yes: No Distress, Calm Cardiovascular: Yes: S1, S2 Respiratory: Yes: Regular, CTA Bilaterally Gastrointestinal: Yes: Normal Bowel Sounds, Soft Musculoskeletal: Yes: WNL Extremities: Yes: WNL Neurological: Yes: Alert, Oriented Psychiatric: Yes: Alert, Oriented Labs: CBC, BMP 01/28/20 06:50 INR, PTT INR 1.37 (0.83-1.09) H 01/26/20 15:38 Assessment/Plan Problem List - Problems (1) Sepsis Code(s): A41.9 - SEPSIS, UNSPECIFIED ORGANISM Qualifiers: Sepsis type: sepsis due to unspecified organism Sepsis acute organ dysfunct ion status: unspecified Qualified Code(s): A41.9 - Sepsis, unspecified organism (2) Bacteremia Code(s): R78.81 - BACTEREMIA (3) Diabetes type 2, uncontrolled Code(s): E11.65 - TYPE 2 DIABETES MELLITUS WITH HYPERGLYCEMIA (4) Thrombocytopenia Code(s): D69.6 - THROMBOCYTOPENIA, UNSPECIFIED (5) Dysuria Code(s): R30.0 - DYSURIA (6) UTI (urinary tract infection) Code(s): N39.0 - URINARY TRACT INFECTION, SITE NOT SPECIFIED Qualifiers: Urinary tract infection type: site unspecified Hematuria presence: without hematuria Qualified Code(s): N39.0 - Urinary tract infection, site not specified plan continue abx awaiting for identification of the bacteria res as per the team monitor fevers
[2020-01-28 09:16] LABS: ALBUMIN 2.8 g/dl (3.4-5.0); BILIRUBIN,TOTAL 0.8 mg/dL (0.2-1); BLOOD UREA NITROGEN 16.8 mg/dL (7-18); CREATININE 0.8 mg/dL (0.55-1.3); MAGNESIUM 1.8 mg/dL (1.8-2.4); POTASSIUM 3.6 mmol/L (3.5-5.1); TOT PROT 6.4 g/dl (6.4-8.2)
[2020-01-28] MEDS: ENOXAPARIN NA (PORCINE) 40 MG/0.4 ML DISP.SYRIN SQ SCH (11:22)
--- NOTE | 2020-01-28 14:55 | PN ---
Physical Exam: SUBJECTIVE: Patient seen and examined at the bedside. in no acute distress. tells me that he has been having chest discomfort that started this morning but did not report it to anyone until now. he denies shortness of breath or arm pain. OBJECTIVE: chest pain non radiating, also having epigastric pain ekg now stat trop ----- Patient is a 64 year old male with a history of DM and Hep C (treated 3 years ago) who presents to the ED on 01/26/2020 for fever and pain with urination. ekg 01/28/2020: nsr with non specific t wave abnormality. Vital Signs Period Temp Pulse Resp BP Sys/Herbert Pulse Ox Last 24 Hr 97.6 F-101.9 F 63-85 18-20 113-139/56-72 94-100 GENERAL: The patient is awake, alert, and fully oriented, in no acute distress. HEAD: Normal with no signs of trauma. EYES: PERRL, extraocular movements intact, sclera anicteric, conjunctiva clear. No ptosis. ENT: Ears normal, nares patent, oropharynx clear without exudates NECK: Trachea midline, full range of motion, supple. LUNGS: Breath sounds equal, clear to auscultation bilaterally HEART: Regular rate and rhythm ABDOMEN: Soft, nontender, nondistended, normoactive bowel sounds EXTREMITIES: no edema. NEUROLOGICAL: Normal speech, gait steady PSYCH: Normal mood, normal affect. SKIN: Warm, dry, normal turgor, no rashes or lesions noted Laboratory Results - last 24 hr 01/26/20 01/28/20 01/28/20 15:45 06:29 06:50 WBC 7.1 RBC 3.71 L Hgb 11.7 Hct 34.1 L MCV 92.0 MCH 31.7 MCHC 34.4 RDW 13.4 Plt Count 81 L MPV 9.9 Absolute Neuts (auto) 5.0 Neutrophils % 70.5 Lymphocytes % 18.1 Monocytes % 9.4 Eosinophils % 1.7 Basophils % 0.3 Nucleated RBC % 0 Sodium Potassium Chloride Carbon Dioxide Anion Gap BUN Creatinine Est GFR (CKD-EPI)AfAm Est GFR (CKD-EPI)NonAf POC Glucometer 184 Random Glucose Calcium Magnesium Total Bilirubin AST ALT Alkaline Phosphatase Total Protein Albumin COVID-19 (ASHLEY) Not detected 01/28/20 01/28/20 06:50 11:15 WBC RBC Hgb Hct MCV MCH MCHC RDW Plt Count MPV Absolute Neuts (auto) Neutrophils % Lymphocytes % Monocytes % Eosinophils % Basophils % Nucleated RBC % Sodium 138 Potassium 3.6 Chloride 108 H Carbon Dioxide 23 Anion Gap 7 L BUN 16.8 Creatinine 0.8 Est GFR (CKD-EPI)AfAm 107.89 Est GFR (CKD-EPI)NonAf 93.09 POC Glucometer 212 Random Glucose 177 H Calcium 8.0 L Magnesium 1.8 Total Bilirubin 0.8 AST 24 ALT 20 Alkaline Phosphatase 70 Total Protein 6.4 Albumin 2.8 L COVID-19 (ASHLEY) Active Medications Generic Name Dose Route Start Last Admin Trade Name Freq PRN Reason Stop Dose Admin Acetaminophen 650 mg 01/26/20 17:21 01/28/20 06:31 Tylenol - PO 650 mg Q4H PRN Administration PAIN LEVEL 6-10 Enoxaparin Sodium 40 mg 01/27/20 10:00 01/28/20 11:22 Lovenox - SQ 40 mg DAILY ISAAK Administration Piperacillin Sod/Tazobactam 50 mls @ 100 mls/hr 01/27/20 10:00 01/28/20 11:22 Sod 3.375 gm/ Dextrose IVPB 100 mls/hr Q8H-IV ISAAK Administration Protocol Sodium Chloride 1,000 mls @ 50 mls/hr 01/27/20 16:19 01/27/20 18:00 Normal Saline - IV 50 mls/hr ASDIR ISAAK Administration Insulin Aspart 0 vial 01/27/20 07:00 01/28/20 11:22 Novolog Vial Sliding Scale - SQ 4 unit TIDAC ISAAK Administration Protocol ASSESSMENT/PLAN: Problem List - Problems (1) Sepsis Assessment/Plan: patient with leukocytosis and + blood and + urine cultures - gram neg bacilli. repeat blood cultures pending. on zosyn per ID monitor labs, vitals signs echo noted Code(s): A41.9 - SEPSIS, UNSPECIFIED ORGANISM Qualifiers: Sepsis type: sepsis due to unspecified organism Sepsis acute organ dysfunction status: unspecified Qualified Code(s): A41.9 - Sepsis, unspecified organism (2) Chest pain Assessment/Plan: patient with chest pain, non radiating, denies shortness of breath, chest pain midsternal. also having epigastric pain. will order ekg, troponins and start on [place] monitor troponins Code(s): R07.9 - CHEST PAIN, UNSPECIFIED (3) Bacteremia Assessment/Plan: blood cultures with pending organism-gram negative bacilli, repeat blood cultures pending urine culture also with gram neg bacilli. on zosyn per ID will repeat blood cultures Code(s): R78.81 - BACTEREMIA (4) Diabetes type 2, uncontrolled Assessment/Plan: patient does not take any home medications for diabetes. ha1c shows uncontrolled diabetes with elevated bgms. started on novlog sliding scale. will need ome insulin and teaching how to do a sliding scale. monitor bgms Code(s): E11.65 - TYPE 2 DIABETES MELLITUS WITH HYPERGLYCEMIA (5) Thrombocytopenia Assessment/Plan: unclear etiology of low platelets but may be in the setting of sepsis. no prior labs to compare monitor while on lovenox Code(s): D69.6 - THROMBOCYTOPENIA, UNSPECIFIED (6) Dysuria Code(s): R30.0 - DYSURIA (7) UTI (urinary tract infection) Assessment/Plan: sepis in the setting of UTI and now with positive blood cultures. repeat blood cultures pending. uc with lactose ferm negative baccilli. on zosyn Code(s): N39.0 - URINARY TRACT INFECTION, SITE NOT SPECIFIED Qualifiers: Urinary tract infection type: site unspecified Hematuria presence: without hematuria Qualified Code(s): N39.0 - Urinary tract infection, site not specified (8) DVT prophylaxis Assessment/Plan: on lovenox 40mg daily Code(s): Z29.9 - ENCOUNTER FOR PROPHYLACTIC MEASURES, UNSPECIFIED Visit type - Emergency Visit Emergency Visit: Yes ED Registration Date: 01/26/20 Care time: The patient presented to the Emergency Department on the above date and was hospitalized for further evaluation of their emergent condition. - New Patient This patient is new to me today: No - Critical Care Critical Care patient: No - Discharge Referral Referred to [facility] Med P.C.: Yes - Medication Review Med list reviewed for High Risk Meds patients 65 and older: Yes
[2020-01-28] MEDS ORDERED: MAG HYDROX/AL HYDROX/SIMETH 30 ML UNIT-DOSE CUP PO PRN (15:13)
[2020-01-28] MEDS: PANTOPRAZOLE 40 MG TABLET PO SCH (16:31)
[2020-01-28] MEDS ORDERED: PT OWN MED DRAWER 7, Y5N ONE (23:54)
[2020-01-29] MEDS ORDERED: PIPERACILLIN/TAZOBACTAM 3.375 GM VIAL IVPB ONE ×3 (01:14→17:12)
[2020-01-29] MEDS ORDERED: DEXTROSE 5%-WATER - 50 ML IVPB ONE ×3 (01:14→17:12)
[2020-01-29] MEDS: PIPERACILLIN/TAZOB 3.375 GM 3.375 GM in DEXTROSE 5%-WATER - 50 ML IVPB SCH ×3 (02:14→17:37)
[2020-01-29] MEDS: ACETAMINOPHEN 325 MG TABLET (FP) PO PRN ×2 (03:14→17:37)
[2020-01-29] MEDS: INSULIN SLIDING SCALE (NOVOLOG) 1 VIAL SQ SCH ×3 (06:25→16:25)
[2020-01-29 08:30] LABS: BASO % 0.4 % (0-2.0); EOS % 1.1 % (0-4.5); HEMATOCRIT 34.8 % (35.4-49); HEMOGLOBIN 11.9 GM/dL (11.7-16.9); LYMPH % 25.2 % (8-40); MCH 31.1 pg (25.7-33.7); MCHC 34.2 g/dl (32.0-35.9); MEAN CELL VOLUME 90.8 fl (80-96); MEAN PLT VOLUME 9.5 fl (7.5-11.1); MONO % 12.4 % (3.8-10.2); NEUT % 60.9 % (42.8-82.8); PLATELET COUNT 101 K/MM3 (134-434); RBC 3.83 M/mm3 (4.00-5.60); RDW 13.5 % (11.9-15.9); WHITE BLOOD COUNT 5.7 K/mm3 (4.0-10.0)
[2020-01-29 08:33] LABS: ALBUMIN 2.7 g/dl (3.4-5.0); BILIRUBIN,TOTAL 0.9 mg/dL (0.2-1)
[2020-01-29 08:34] LABS: BLOOD UREA NITROGEN 10.4 mg/dL (7-18); CALCIUM 7.8 mg/dL (8.5-10.1); CREATININE 0.8 mg/dL (0.55-1.3); MAGNESIUM 1.9 mg/dL (1.8-2.4); POTASSIUM 3.5 mmol/L (3.5-5.1); TOT PROT 6.5 g/dl (6.4-8.2)
[2020-01-29] MEDS: ENOXAPARIN NA (PORCINE) 40 MG/0.4 ML DISP.SYRIN SQ SCH (10:27)
[2020-01-29] MEDS: PANTOPRAZOLE 40 MG TABLET PO SCH (10:27)
--- NOTE | 2020-01-29 10:40 | EKG ---
Test Reason : Blood Pressure : / mmHG Vent. Rate : 072 BPM Atrial Rate : 072 BPM P-R Int : 162 ms QRS Dur : 092 ms QT Int : 368 ms P-R-T Axes : 061 052 017 degrees QTc Int : 402 ms NORMAL SINUS RHYTHM NONSPECIFIC T WAVE ABNORMALITY ABNORMAL ECG WHEN COMPARED WITH ECG OF 26-JAN-2020 15:25, VENT. RATE HAS DECREASED BY 49 BPM Confirmed by TRISHA MALAVE MD ([id number]) on 01/29/2020 10:39:51 AM Referred By: Confirmed By:TRISHA MALAVE MD
--- NOTE | 2020-01-29 11:21 | PN ---
Progress Note, Physician History of Present Illness: stable still with low grade fevers - Current Medication List Current Medications: Active Medications Acetaminophen (Tylenol -) 650 mg PO Q4H PRN PRN Reason: PAIN LEVEL 6-10 Last Admin: 01/29/20 03:14 Dose: 650 mg Documented by: Al Hydroxide/Mg Hydroxide (Mylanta Oral Suspension -) 30 ml PO Q6H PRN PRN Reason: DYSPEPSIA Enoxaparin Sodium (Lovenox -) 40 mg SQ DAILY [facility] Last Admin: 01/29/20 10:27 Dose: 40 mg Documented by: Piperacillin Sod/Tazobactam (Sod 3.375 gm/ Dextrose) 50 mls @ 100 mls/hr IVPB Q8H-IV [facility]; Protocol Last Admin: 01/29/20 10:28 Dose: 100 mls/hr Documented by: Sodium Chloride (Normal Saline -) 1,000 mls @ 50 mls/hr IV ASDIR [facility] Last Admin: 01/27/20 18:00 Dose: 50 mls/hr Documented by: Insulin Aspart (Novolog Vial Sliding Scale -) 0 vial SQ TIDAC [facility]; Protocol Last Admin: 01/29/20 10:36 Dose: 4 unit Documented by: Pantoprazole Sodium (Protonix -) 40 mg PO DAILY [facility] Last Admin: 01/29/20 10:27 Dose: 40 mg Documented by: - Objective Vital Signs: Vital Signs Temperature 99.1 F 01/29/20 10:00 Pulse Rate 65 01/29/20 10:00 Respiratory Rate 20 01/29/20 10:00 Blood Pressure 120/72 01/29/20 10:00 O2 Sat by Pulse Oximetry (%) 95 01/29/20 10:00 Constitutional: Yes: No Distress, Calm Cardiovascular: Yes: S1, S2 Musculoskeletal: Yes: WNL Extremities: Yes: WNL Neurological: Yes: Alert, Oriented Psychiatric: Yes: Alert, Oriented Labs: CBC, BMP 01/29/20 07:22 01/29/20 07:22 INR, PTT INR 1.37 (0.83-1.09) H 01/26/20 15:38 Assessment/Plan Problem List - Problems (1) Sepsis Code(s): A41.9 - SEPSIS, UNSPECIFIED ORGANISM Qualifiers: Sepsis type: sepsis due to unspecified organism Sepsis acute organ dysfunc tion status: unspecified Qualified Code(s): A41.9 - Sepsis, unspecified organism (2) Bacteremia Code(s): R78.81 - BACTEREMIA (3) Diabetes type 2, uncontrolled Code(s): E11.65 - TYPE 2 DIABETES MELLITUS WITH HYPERGLYCEMIA (4) Thrombocytopenia Code(s): D69.6 - THROMBOCYTOPENIA, UNSPECIFIED (5) Dysuria Code(s): R30.0 - DYSURIA (6) UTI (urinary tract infection) Code(s): N39.0 - URINARY TRACT INFECTION, SITE NOT SPECIFIED Qualifiers: Urinary tract infection type: site unspecified Hematuria presence: without hematuria Qualified Code(s): N39.0 - Urinary tract infection, site not specified plan continue abx will see how patient does repeat cx negative rest as per he team
[2020-01-29 15:48] VITALS: BMI 25.8
[2020-01-30] MEDS ORDERED: DEXTROSE 5%-WATER - 50 ML IVPB ONE ×3 (01:06→18:00)
[2020-01-30] MEDS ORDERED: PIPERACILLIN/TAZOBACTAM 3.375 GM VIAL IVPB ONE ×3 (01:06→18:00)
[2020-01-30] MEDS: PIPERACILLIN/TAZOB 3.375 GM 3.375 GM in DEXTROSE 5%-WATER - 50 ML IVPB SCH ×3 (01:30→18:02)
[2020-01-30] MEDS: guaiFENesin/D-M SUGAR-FREE/ACLHOL-FREE 118 ML BOTTLE PO PRN ×3 (01:59→18:03)
[2020-01-30] MEDS ORDERED: PT OWN MED DRAWER 7, Y5N ONE ×3 (02:02→20:53)
[2020-01-30] MEDS: INSULIN SLIDING SCALE (NOVOLOG) 1 VIAL SQ SCH ×3 (06:23→18:04)
[2020-01-30] MEDS: ACETAMINOPHEN 325 MG TABLET (FP) PO PRN (06:23)
[2020-01-30 08:32] LABS: BASO % 0.6 % (0-2.0); EOS % 1.5 % (0-4.5); HEMATOCRIT 34.2 % (35.4-49); HEMOGLOBIN 11.9 GM/dL (11.7-16.9); LYMPH % 28.6 % (8-40); MCH 31.8 pg (25.7-33.7); MCHC 34.8 g/dl (32.0-35.9); MEAN CELL VOLUME 91.4 fl (80-96); MEAN PLT VOLUME 9.3 fl (7.5-11.1); MONO % 13.1 % (3.8-10.2); NEUT % 56.2 % (42.8-82.8); PLATELET COUNT 108 K/MM3 (134-434); RBC 3.74 M/mm3 (4.00-5.60); RDW 13.3 % (11.9-15.9); WHITE BLOOD COUNT 6.7 K/mm3 (4.0-10.0)
[2020-01-30 08:56] LABS: ALBUMIN 2.6 g/dl (3.4-5.0); BILIRUBIN,TOTAL 0.8 mg/dL (0.2-1); BLOOD UREA NITROGEN 11.9 mg/dL (7-18); CALCIUM 7.9 mg/dL (8.5-10.1); CREATININE 0.8 mg/dL (0.55-1.3); MAGNESIUM 1.8 mg/dL (1.8-2.4); POTASSIUM 3.7 mmol/L (3.5-5.1); TOT PROT 6.6 g/dl (6.4-8.2)
[2020-01-30] MEDS: ENOXAPARIN NA (PORCINE) 40 MG/0.4 ML DISP.SYRIN SQ SCH (09:21)
[2020-01-30] MEDS: PANTOPRAZOLE 40 MG TABLET PO SCH (09:21)
--- NOTE | 2020-01-30 11:55 | PN ---
Progress Note, Physician History of Present Illness: still spiking fevers wbc normalized - Current Medication List Current Medications: Active Medications Acetaminophen (Tylenol -) 650 mg PO Q4H PRN PRN Reason: FEVER Last Admin: 01/30/20 06:23 Dose: 650 mg Documented by: Al Hydroxide/Mg Hydroxide (Mylanta Oral Suspension -) 30 ml PO Q6H PRN PRN Reason: DYSPEPSIA Enoxaparin Sodium (Lovenox -) 40 mg SQ DAILY [facility] Last Admin: 01/30/20 09:21 Dose: 40 mg Documented by: Cyaifenesin (Diabetic Tussin Dm -) 10 ml PO Q6H PRN PRN Reason: COUGH Last Admin: 01/30/20 09:22 Dose: 10 mg Documented by: Piperacillin Sod/Tazobactam (Sod 3.375 gm/ Dextrose) 50 mls @ 100 mls/hr IVPB Q8H-IV [facility]; Protocol Last Admin: 01/30/20 09:22 Dose: 100 mls/hr Documented by: Influenza Virus Vaccine (Flulaval Quad Syr) 60 mcg IM .ONCE ONE Stop: 01/30/20 02:31 Insulin Aspart (Novolog Vial Sliding Scale -) 0 vial SQ TIDAC [facility]; Protocol Last Admin: 01/30/20 06:23 Dose: 4 unit Documented by: Pantoprazole Sodium (Protonix -) 40 mg PO DAILY [facility] Last Admin: 01/30/20 09:21 Dose: 40 mg Documented by: - Objective Vital Signs: Vital Signs Temperature 98.9 F 01/30/20 09:54 Pulse Rate 60 01/30/20 09:54 Respiratory Rate 20 01/30/20 09:54 Blood Pressure 107/67 01/30/20 09:54 O2 Sat by Pulse Oximetry (%) 96 01/30/20 09:54 Constitutional: Yes: No Distress, Calm Cardiovascular: Yes: S1, S2 Respiratory: Yes: Regular, CTA Bilaterally Gastrointestinal: Yes: Normal Bowel Sounds, Soft Musculoskeletal: Yes: WNL Extremities: Yes: WNL Neurological: Yes: Alert, Oriented Psychiatric: Yes: Alert, Oriented Labs: CBC, BMP 01/30/20 08:02 01/30/20 08:02 INR, PTT INR 1.37 (0.83-1.09) H 01/26/20 15:38 Assessment/Plan Problem List - Problems (1) Sepsis Code(s): A41.9 - SEPSIS, UNSPECIFIED ORGANISM Qualifiers: Sepsis type: sepsis due to unspecified organism Sepsis acute organ dysfunction status: unspecified Qualified Code(s): A41.9 - Sepsis, unspecified organism (2) Bacteremia Code(s): R78.81 - BACTEREMIA (3) Diabetes type 2, uncontrolled Code(s): E11.65 - TYPE 2 DIABETES MELLITUS WITH HYPERGLYCEMIA (4) Thrombocytopenia Code(s): D69.6 - THROMBOCYTOPENIA, UNSPECIFIED (5) Dysuria Code(s): R30.0 - DYSURIA (6) UTI (urinary tract infection) Code(s): N39.0 - URINARY TRACT INFECTION, SITE NOT SPECIFIED Qualifiers: Urinary tract infection type: site unspecified Hematuria presence: without hematuria Qualified Code(s): N39.0 - Urinary tract infection, site not specified plan continue abx will see how patient does repeat cx negative rest as per he team
--- NOTE | 2020-01-30 16:24 | PN ---
Physical Exam: SUBJECTIVE: Patient seen and examined. ambulating around room, in no acute distress. denies any malaise. denies chest pain. OBJECTIVE: Patient is a 64 year old male with a history of DM and Hep C (treated 3 years ago) who presents to the ED on 01/26/2020 for fever and pain with urination. Patient found to have urosepsis and is currently on Zosyn IV and being followed by ID. Vital Signs Period Temp Pulse Resp BP Sys/Herbert Pulse Ox Last 24 Hr 98.5 F-102.1 F 57-70 20-20 107-134/52-76 93-97 GENERAL: The patient is awake, alert, and fully oriented, in no acute distress. HEAD: Normal with no signs of trauma. EYES: PERRL, extraocular movements intact, sclera anicteric, conjunctiva clear. No ptosis. ENT: Ears normal, nares patent, oropharynx clear without exudates NECK: Trachea midline, full range of motion, supple. LUNGS: Breath sounds equal, clear to auscultation bilaterally HEART: Regular rate and rhythm ABDOMEN: Soft, nontender, nondistended, normoactive bowel sounds EXTREMITIES: no edema. NEUROLOGICAL: Normal speech, gait steady PSYCH: Normal mood, normal affect. SKIN: Warm, dry, normal turgor, no rashes or lesions noted Laboratory Results - last 24 hr 01/29/20 01/30/20 01/30/20 16:22 06:20 08:02 WBC 6.7 RBC 3.74 L Hgb 11.9 Hct 34.2 L MCV 91.4 MCH 31.8 MCHC 34.8 RDW 13.3 Plt Count 108 L MPV 9.3 Absolute Neuts (auto) 3.8 Neutrophils % 56.2 Lymphocytes % 28.6 Monocytes % 13.1 H Eosinophils % 1.5 Basophils % 0.6 Nucleated RBC % 0 Sodium Potassium Chloride Carbon Dioxide Anion Gap BUN Creatinine Est GFR (CKD-EPI)AfAm Est GFR (CKD-EPI)NonAf POC Glucometer 182 205 Random Glucose Calcium Magnesium Total Bilirubin AST ALT Alkaline Phosphatase Total Protein Albumin 01/30/20 01/30/20 08:02 12:03 WBC RBC Hgb Hct MCV MCH MCHC RDW Plt Count MPV Absolute Neuts (auto) Neutrophils % Lymphocytes % Monocytes % Eosinophils % Basophils % Nucleated RBC % Sodium 139 Potassium 3.7 Chloride 108 H Carbon Dioxide 24 Anion Gap 6 L BUN 11.9 Creatinine 0.8 Est GFR (CKD-EPI)AfAm 107.89 Est GFR (CKD-EPI)NonAf 93.09 POC Glucometer 205 Random Glucose 176 H Calcium 7.9 L Magnesium 1.8 Total Bilirubin 0.8 AST 28 ALT 27 Alkaline Phosphatase 109 Total Protein 6.6 Albumin 2.6 L Active Medications Generic Name Dose Route Start Last Admin Trade Name Freq PRN Reason Stop Dose Admin Acetaminophen 650 mg 01/29/20 12:11 01/30/20 06:23 Tylenol - PO 650 mg Q4H PRN Administration FEVER Al Hydroxide/Mg Hydroxide 30 ml 01/28/20 15:13 Mylanta Oral Suspension - PO Q6H PRN DYSPEPSIA Enoxaparin Sodium 40 mg 01/27/20 10:00 01/30/20 09:21 Lovenox - SQ 40 mg DAILY [facility] Administration Guaifenesin 10 ml 01/30/20 01:48 01/30/20 09:22 Diabetic Tussin Dm - PO 10 mg Q6H PRN Administration COUGH Piperacillin Sod/Tazobactam 50 mls @ 100 mls/hr 01/27/20 10:00 01/30/20 09:22 Sod 3.375 gm/ Dextrose IVPB 100 mls/hr Q8H-IV [facility] Administration Protocol Influenza Virus Vaccine 60 mcg 01/30/20 02:30 Flulaval Quad [id number] Syr IM 01/30/20 02:31 .ONCE ONE Insulin Aspart 0 vial 01/27/20 07:00 01/30/20 12:47 Novolog Vial Sliding Scale - SQ 4 unit TIDAC [facility] Administration Protocol Pantoprazole Sodium 40 mg 01/28/20 16:00 01/30/20 09:21 Protonix - PO 40 mg DAILY [facility] Administration ASSESSMENT/PLAN: Problem List - Problems (1) Sepsis Assessment/Plan: patient with leukocytosis and + blood and + urine cultures - gram neg bacilli. repeat blood cultures negative to date on zosyn per ID monitor labs, vitals signs echo noted Code(s): A41.9 - SEPSIS, UNSPECIFIED ORGANISM Qualifiers: Sepsis type: sepsis due to unspecified organism Sepsis acute organ dysfunction status: unspecified Qualified Code(s): A41.9 - Sepsis, unspecified organism (2) Chest pain Assessment/Plan: patient with chest pain, non radiating, denies shortness of breath, chest pain midsternal. also having epigastric pain. will order ekg, troponins and start on mylanta monitor troponins Code(s): R07.9 - CHEST PAIN, UNSPECIFIED (3) Bacteremia Assessment/Plan: blood and urine cultures with ecoli on zosyn per ID will repeat blood cultures are negative Code(s): R78.81 - BACTEREMIA (4) Diabetes type 2, uncontrolled Assessment/Plan: patient does not take any home medications for diabetes. ha1c shows uncontrolled diabetes with elevated bgms. started on novlog sliding scale. will need ome insulin and teaching how to do a sliding scale. monitor bgms Code(s): E11.65 - TYPE 2 DIABETES MELLITUS WITH HYPERGLYCEMIA (5) Thrombocytopenia Assessment/Plan: unclear etiology of low platelets but may be in the setting of sepsis. no prior labs to compare monitor while on lovenox Code(s): D69.6 - THROMBOCYTOPENIA, UNSPECIFIED (6) Dysuria Code(s): R30.0 - DYSURIA (7) UTI (urinary tract infection) Assessment/Plan: sepis in the setting of UTI and now with positive blood cultures. repeat blood cultures neg thus far. uc with lactose ferm negative baccilli. on zosyn Code(s): N39.0 - URINARY TRACT INFECTION, SITE NOT SPECIFIED Qualifiers: Urinary tract infection type: site unspecified Hematuria presence: without hematuria Qualified Code(s): N39.0 - Urinary tract infection, site not specified (8) DVT prophylaxis Assessment/Plan: on lovenox 40mg daily Code(s): Z29.9 - ENCOUNTER FOR PROPHYLACTIC MEASURES, UNSPECIFIED Visit type - Emergency Visit Emergency Visit: Yes ED Registration Date: 01/26/20 Care time: The patient presented to the Emergency Department on the above date and was hospitalized for further evaluation of their emergent condition. - New Patient This patient is new to me today: No - Critical Care Critical Care patient: No - Discharge Referral Referred to [facility] Med [facility].C[facility] No - Medication Review Med list reviewed for High Risk Meds patients 65 and older: Yes
--- NOTE | 2020-01-30 16:31 | PN ---
Physical Exam: SUBJECTIVE: Patient seen and examined, ambulating around room, denies any malaise. OBJECTIVE: Patient is a 64 year old male with a history of DM and Hep C (treated 3 years ago) who presents to the ED on 01/26/2020 for fever and pain with urination. Patient found to have urosepsis and is currently on Zosyn IV and being followed by ID. Vital Signs Period Temp Pulse Resp BP Sys/Herbert Pulse Ox Last 24 Hr 98.5 F-102.1 F 57-70 20-20 107-134/52-76 93-97 GENERAL: The patient is awake, alert, and fully oriented, in no acute distress. HEAD: Normal with no signs of trauma. EYES: PERRL, extraocular movements intact, sclera anicteric, conjunctiva clear. No ptosis. ENT: Ears normal, nares patent, oropharynx clear without exudates NECK: Trachea midline, full range of motion, supple. LUNGS: Breath sounds equal, clear to auscultation bilaterally HEART: Regular rate and rhythm ABDOMEN: Soft, nontender, nondistended, normoactive bowel sounds EXTREMITIES: no edema. NEUROLOGICAL: Normal speech, gait steady PSYCH: Normal mood, normal affect. SKIN: Warm, dry, normal turgor, no rashes or lesions noted Laboratory Results - last 24 hr 01/30/20 01/30/20 01/30/20 06:20 08:02 08:02 WBC 6.7 RBC 3.74 L Hgb 11.9 Hct 34.2 L MCV 91.4 MCH 31.8 MCHC 34.8 RDW 13.3 Plt Count 108 L MPV 9.3 Absolute Neuts (auto) 3.8 Neutrophils % 56.2 Lymphocytes % 28.6 Monocytes % 13.1 H Eosinophils % 1.5 Basophils % 0.6 Nucleated RBC % 0 Sodium 139 Potassium 3.7 Chloride 108 H Carbon Dioxide 24 Anion Gap 6 L BUN 11.9 Creatinine 0.8 Est GFR (CKD-EPI)AfAm 107.89 Est GFR (CKD-EPI)NonAf 93.09 POC Glucometer 205 Random Glucose 176 H Calcium 7.9 L Magnesium 1.8 Total Bilirubin 0.8 AST 28 ALT 27 Alkaline Phosphatase 109 Total Protein 6.6 Albumin 2.6 L 01/30/20 12:03 WBC RBC Hgb Hct MCV MCH MCHC RDW Plt Count MPV Absolute Neuts (auto) Neutrophils % Lymphocytes % Monocytes % Eosinophils % Basophils % Nucleated RBC % Sodium Potassium Chloride Carbon Dioxide Anion Gap BUN Creatinine Est GFR (CKD-EPI)AfAm Est GFR (CKD-EPI)NonAf POC Glucometer 205 Random Glucose Calcium Magnesium Total Bilirubin AST ALT Alkaline Phosphatase Total Protein Albumin Active Medications Generic Name Dose Route Start Last Admin Trade Name Freq PRN Reason Stop Dose Admin Acetaminophen 650 mg 01/29/20 12:11 01/30/20 06:23 Tylenol - PO 650 mg Q4H PRN Administration FEVER Al Hydroxide/Mg Hydroxide 30 ml 01/28/20 15:13 Mylanta Oral Suspension - PO Q6H PRN DYSPEPSIA Enoxaparin Sodium 40 mg 01/27/20 10:00 01/30/20 09:21 Lovenox - SQ 40 mg DAILY [facility] Administration Guaifenesin 10 ml 01/30/20 01:48 01/30/20 09:22 Diabetic Tussin Dm - PO 10 mg Q6H PRN Administration COUGH Piperacillin Sod/Tazobactam 50 mls @ 100 mls/hr 01/27/20 10:00 01/30/20 09:22 Sod 3.375 gm/ Dextrose IVPB 100 mls/hr Q8H-IV [facility] Administration Protocol Influenza Virus Vaccine 60 mcg 01/30/20 02:30 Flulaval Quad [id number] Syr IM 01/30/20 02:31 .ONCE ONE Insulin Aspart 0 vial 01/27/20 07:00 01/30/20 12:47 Novolog Vial Sliding Scale - SQ 4 unit TIDAC [facility] Administration Protocol Pantoprazole Sodium 40 mg 01/28/20 16:00 01/30/20 09:21 Protonix - PO 40 mg DAILY [facility] Administration ASSESSMENT/PLAN: Problem List - Problems (1) Sepsis Assessment/Plan: patient with leukocytosis and + blood and + urine cultures - gram neg bacilli. repeat blood cultures negative to date on zosyn per ID monitor labs, vitals signs echo noted Code(s): A41.9 - SEPSIS, UNSPECIFIED ORGANISM Qualifiers: Sepsis type: sepsis due to unspecified organism Sepsis acute organ dysfunction status: unspecified Qualified Code(s): A41.9 - Sepsis, unspecified organism (2) Chest pain Assessment/Plan: patient with chest pain, non radiating, denies shortness of breath, chest pain midsternal. also having epigastric pain. will order ekg, troponins and start on mylanta monitor troponins Code(s): R07.9 - CHEST PAIN, UNSPECIFIED (3) Bacteremia Assessment/Plan: blood and urine cultures with ecoli on zosyn per ID will repeat blood cultures are negative Code(s): R78.81 - BACTEREMIA (4) Diabetes type 2, uncontrolled Assessment/Plan: patient does not take any home medications for diabetes. ha1c shows uncontrolled diabetes with elevated bgms. started on novlog sliding scale. will need ome insulin and teaching how to do a sliding scale. monitor bgms Code(s): E11.65 - TYPE 2 DIABETES MELLITUS WITH HYPERGLYCEMIA (5) Thrombocytopenia Assessment/Plan: unclear etiology of low platelets but may be in the setting of sepsis. no prior labs to compare monitor while on lovenox Code(s): D69.6 - THROMBOCYTOPENIA, UNSPECIFIED (6) Dysuria Code(s): R30.0 - DYSURIA (7) UTI (urinary tract infection) Assessment/Plan: sepis in the setting of UTI and now with positive blood cultures. repeat blood cultures neg thus far. uc with lactose ferm negative baccilli. on zosyn Code(s): N39.0 - URINARY TRACT INFECTION, SITE NOT SPECIFIED Qualifiers: Urinary tract infection type: site unspecified Hematuria presence: without hematuria Qualified Code(s): N39.0 - Urinary tract infection, site not specified (8) DVT prophylaxis Assessment/Plan: on lovenox 40mg daily Code(s): Z29.9 - ENCOUNTER FOR PROPHYLACTIC MEASURES, UNSPECIFIED Visit type - Emergency Visit Emergency Visit: Yes ED Registration Date: 01/26/20 Care time: The patient presented to the Emergency Department on the above date and was hospitalized for further evaluation of their emergent condition. - New Patient This patient is new to me today: No - Critical Care Critical Care patient: No - Discharge Referral Referred to [facility] Med P.C.: No - Medication Review Med list reviewed for High Risk Meds patients 65 and older: Yes
[2020-01-30] MEDS ORDERED: FLU VACCINE (FLULAVAL) PF 60 MCG/0.5 ML SYRINGE 2020-2021 IM ONE (19:30)
[2020-01-31] MEDS ORDERED: PIPERACILLIN/TAZOBACTAM 3.375 GM VIAL IVPB ONE ×3 (00:54→17:21)
[2020-01-31] MEDS ORDERED: DEXTROSE 5%-WATER - 50 ML IVPB ONE ×3 (00:54→17:22)
[2020-01-31] MEDS: PIPERACILLIN/TAZOB 3.375 GM 3.375 GM in DEXTROSE 5%-WATER - 50 ML IVPB SCH ×3 (01:49→17:39)
[2020-01-31] MEDS: INSULIN SLIDING SCALE (NOVOLOG) 1 VIAL SQ SCH ×3 (06:09→17:38)
[2020-01-31 08:35] LABS: BASO % 0.7 % (0-2.0); EOS % 3.5 % (0-4.5); HEMATOCRIT 36.4 % (35.4-49); HEMOGLOBIN 12.3 GM/dL (11.7-16.9); LYMPH % 29.9 % (8-40); MCH 30.6 pg (25.7-33.7); MCHC 33.9 g/dl (32.0-35.9); MEAN CELL VOLUME 90.3 fl (80-96); MEAN PLT VOLUME 8.9 fl (7.5-11.1); MONO % 13.8 % (3.8-10.2); NEUT % 52.1 % (42.8-82.8); PLATELET COUNT 146 K/MM3 (134-434); RBC 4.03 M/mm3 (4.00-5.60); RDW 13.4 % (11.9-15.9); WHITE BLOOD COUNT 7.9 K/mm3 (4.0-10.0)
[2020-01-31 09:08] LABS: ALBUMIN 2.8 g/dl (3.4-5.0); BILIRUBIN,TOTAL 0.8 mg/dL (0.2-1); BLOOD UREA NITROGEN 10.5 mg/dL (7-18); CALCIUM 8.7 mg/dL (8.5-10.1); CREATININE 0.9 mg/dL (0.55-1.3); TOT PROT 7.2 g/dl (6.4-8.2)
--- NOTE | 2020-01-31 10:36 | PN ---
Physical Exam: SUBJECTIVE: Patient seen and examined, having a mild headache this morning. denies any nausea/vomiting or visual defect. OBJECTIVE: Patient is a 64 year old male with a history of DM and Hep C (treated 3 years ago) who presents to the ED on 01/26/2020 for fever and pain with urination. Patient found to have urosepsis and is currently on Zosyn IV and being followed by ID. Vital Signs Period Temp Pulse Resp BP Sys/Herbert Pulse Ox Last 24 Hr 98.4 F-99.2 F 51-59 18-20 112-145/54-86 92-98 GENERAL: The patient is awake, alert, and fully oriented, in no acute distress. HEAD: Normal with no signs of trauma. EYES: PERRL, extraocular movements intact, sclera anicteric, conjunctiva clear. No ptosis. ENT: Ears normal, nares patent, oropharynx clear without exudates NECK: Trachea midline, full range of motion, supple. LUNGS: Breath sounds equal, clear to auscultation bilaterally HEART: Regular rate and rhythm ABDOMEN: Soft, nontender, nondistended, normoactive bowel sounds EXTREMITIES: no edema. NEUROLOGICAL: Normal speech, gait steady PSYCH: Normal mood, normal affect. SKIN: Warm, dry, normal turgor, no rashes or lesions noted Laboratory Results - last 24 hr 01/30/20 01/30/20 01/31/20 12:03 17:26 06:09 WBC RBC Hgb Hct MCV MCH MCHC RDW Plt Count MPV Absolute Neuts (auto) Neutrophils % Lymphocytes % Monocytes % Eosinophils % Basophils % Nucleated RBC % Sodium Potassium Chloride Carbon Dioxide Anion Gap BUN Creatinine Est GFR (CKD-EPI)AfAm Est GFR (CKD-EPI)NonAf POC Glucometer 205 171 163 Random Glucose Calcium Magnesium Total Bilirubin AST ALT Alkaline Phosphatase Total Protein Albumin 01/31/20 01/31/20 08:15 08:15 WBC 7.9 RBC 4.03 Hgb 12.3 Hct 36.4 MCV 90.3 MCH 30.6 MCHC 33.9 RDW 13.4 Plt Count 146 D MPV 8.9 Absolute Neuts (auto) 4.1 Neutrophils % 52.1 Lymphocytes % 29.9 Monocytes % 13.8 H Eosinophils % 3.5 D Basophils % 0.7 Nucleated RBC % 0 Sodium 139 Potassium 4.0 Chloride 106 Carbon Dioxide 27 Anion Gap 5 L BUN 10.5 Creatinine 0.9 Est GFR (CKD-EPI)AfAm 102.79 Est GFR (CKD-EPI)NonAf 88.69 POC Glucometer Random Glucose 154 H Calcium 8.7 Magnesium 2.0 Total Bilirubin 0.8 AST 28 ALT 29 Alkaline Phosphatase 121 H Total Protein 7.2 Albumin 2.8 L Active Medications Generic Name Dose Route Start Last Admin Trade Name Freq PRN Reason Stop Dose Admin Acetaminophen 650 mg 01/29/20 12:11 01/30/20 06:23 Tylenol - PO 650 mg Q4H PRN Administration FEVER Al Hydroxide/Mg Hydroxide 30 ml 01/28/20 15:13 Mylanta Oral Suspension - PO Q6H PRN DYSPEPSIA Enoxaparin Sodium 40 mg 01/27/20 10:00 01/30/20 09:21 Lovenox - SQ 40 mg DAILY [facility] Administration Guaifenesin 10 ml 01/30/20 01:48 01/30/20 18:03 Diabetic Tussin Dm - PO 10 mg Q6H PRN Administration COUGH Piperacillin Sod/Tazobactam 50 mls @ 100 mls/hr 01/27/20 10:00 01/31/20 01:49 Sod 3.375 gm/ Dextrose IVPB 100 mls/hr Q8H-IV [facility] Administration Protocol Insulin Aspart 0 vial 01/27/20 07:00 01/31/20 06:09 Novolog Vial Sliding Scale - SQ 2 unit TIDAC [facility] Administration Protocol Pantoprazole Sodium 40 mg 01/28/20 16:00 01/30/20 09:21 Protonix - PO 40 mg DAILY [facility] Administration ASSESSMENT/PLAN: Problem List - Problems (1) Sepsis Assessment/Plan: patient with leukocytosis and + blood and + urine cultures - gram neg bacilli. repeat blood cultures negative to date on zosyn per ID monitor labs, vitals signs echo noted Code(s): A41.9 - SEPSIS, UNSPECIFIED ORGANISM Qualifiers: Sepsis type: sepsis due to unspecified organism Sepsis acute organ dysfunction status: unspecified Qualified Code(s): A41.9 - Sepsis, unspecified organism (2) Chest pain Assessment/Plan: chest pain resolved. troponins negative, Code(s): R07.9 - CHEST PAIN, UNSPECIFIED (3) Bacteremia Assessment/Plan: blood and urine cultures with ecoli on zosyn per ID repeat blood cultures are negative Code(s): R78.81 - BACTEREMIA (4) Diabetes type 2, uncontrolled Assessment/Plan: patient does not take any home medications for diabetes. ha1c shows uncontrolled diabetes with elevated bgms. started on novlog sliding scale. will need ome insulin and teaching how to do a sliding scale. monitor bgms Code(s): E11.65 - TYPE 2 DIABETES MELLITUS WITH HYPERGLYCEMIA (5) Thrombocytopenia Assessment/Plan: improved unclear etiology of low platelets but may be in the setting of sepsis. no prior labs to compare monitor while on lovenox Code(s): D69.6 - THROMBOCYTOPENIA, UNSPECIFIED (6) Dysuria Code(s): R30.0 - DYSURIA (7) UTI (urinary tract infection) Assessment/Plan: sepis in the setting of UTI and now with positive blood cultures. repeat blood cultures neg thus far. uc with lactose ferm negative baccilli. on zosyn Code(s): N39.0 - URINARY TRACT INFECTION, SITE NOT SPECIFIED Qualifiers: Urinary tract infection type: site unspecified Hematuria presence: without hematuria Qualified Code(s): N39.0 - Urinary tract infection, site not specified (8) DVT prophylaxis Assessment/Plan: on lovenox 40mg daily Code(s): Z29.9 - ENCOUNTER FOR PROPHYLACTIC MEASURES, UNSPECIFIED Visit type - Emergency Visit Emergency Visit: Yes ED Registration Date: 01/26/20 Care time: The patient presented to the Emergency Department on the above date and was hospitalized for further evaluation of their emergent condition. - New Patient This patient is new to me today: No - Critical Care Critical Care patient: No - Discharge Referral Referred to [facility] Med P.C.: No - Medication Review Med list reviewed for High Risk Meds patients 65 and older: Yes
[2020-01-31] MEDS: ACETAMINOPHEN 325 MG TABLET (FP) PO PRN (11:01)
[2020-01-31] MEDS: ENOXAPARIN NA (PORCINE) 40 MG/0.4 ML DISP.SYRIN SQ SCH (11:01)
[2020-01-31] MEDS: PANTOPRAZOLE 40 MG TABLET PO SCH (11:02)
[2020-01-31] MEDS: guaiFENesin/D-M SUGAR-FREE/ACLHOL-FREE 118 ML BOTTLE PO PRN ×2 (11:03→18:07)
[2020-01-31] MEDS ORDERED: PT OWN MED DRAWER 7, Y5N ONE (17:21)
[2020-02-01] MEDS ORDERED: PT OWN MED DRAWER 7, Y5N ONE (01:03)
[2020-02-01] MEDS ORDERED: PIPERACILLIN/TAZOBACTAM 3.375 GM VIAL IVPB ONE ×3 (02:07→16:51)
[2020-02-01] MEDS ORDERED: DEXTROSE 5%-WATER - 50 ML IVPB ONE ×3 (02:07→16:51)
[2020-02-01] MEDS: PIPERACILLIN/TAZOB 3.375 GM 3.375 GM in DEXTROSE 5%-WATER - 50 ML IVPB SCH ×3 (02:49→17:20)
[2020-02-01] MEDS: INSULIN SLIDING SCALE (NOVOLOG) 1 VIAL SQ SCH ×3 (06:40→16:48)
[2020-02-01 08:06] LABS: BASO % 0.5 % (0-2.0); EOS % 4.8 % (0-4.5); HEMATOCRIT 37.8 % (35.4-49); HEMOGLOBIN 12.8 GM/dL (11.7-16.9); LYMPH % 33.1 % (8-40); MCH 30.8 pg (25.7-33.7); MCHC 33.8 g/dl (32.0-35.9); MEAN CELL VOLUME 90.9 fl (80-96); MEAN PLT VOLUME 9.1 fl (7.5-11.1); MONO % 12.4 % (3.8-10.2); NEUT % 49.2 % (42.8-82.8); PLATELET COUNT 184 K/MM3 (134-434); RBC 4.15 M/mm3 (4.00-5.60); RDW 13.7 % (11.9-15.9); WHITE BLOOD COUNT 8.4 K/mm3 (4.0-10.0)
[2020-02-01 08:37] LABS: BILIRUBIN,TOTAL 0.7 mg/dL (0.2-1); BLOOD UREA NITROGEN 13.9 mg/dL (7-18); CALCIUM 8.5 mg/dL (8.5-10.1); CREATININE 0.9 mg/dL (0.55-1.3); MAGNESIUM 2.3 mg/dL (1.8-2.4); POTASSIUM 3.8 mmol/L (3.5-5.1); TOT PROT 7.6 g/dl (6.4-8.2)
[2020-02-01] MEDS: ACETAMINOPHEN 325 MG TABLET (FP) PO PRN (08:53)
[2020-02-01] MEDS ORDERED: FLU VACCINE (FLULAVAL) PF 60 MCG/0.5 ML SYRINGE 2020-2021 IM ONE (09:00)
[2020-02-01] MEDS: PANTOPRAZOLE 40 MG TABLET PO SCH (10:31)
[2020-02-01] MEDS: ENOXAPARIN NA (PORCINE) 40 MG/0.4 ML DISP.SYRIN SQ SCH (10:31)
[2020-02-01] MEDS ORDERED: INSULIN (NOVOLOG) ASPART 100 UNITS/ML 10ML VIAL ONE ×2 (11:33→18:58)
--- NOTE | 2020-02-01 12:54 | PN ---
Physical Exam: SUBJECTIVE: Patient seen and examined. ambulating in room, asking to go home. OBJECTIVE: Patient is a 64 year old male with a history of DM and Hep C (treated 3 years ago) who presents to the ED on 01/26/2020 for fever and pain with urination. Patient found to have urosepsis and is currently on Zosyn IV and being followed by ID. Per ID, likely d/c home tomorrow. Vital Signs Period Temp Pulse Resp BP Sys/Herbert Pulse Ox Last 24 Hr 98.1 F-98.7 F 50-56 18-18 119-152/64-88 96-99 GENERAL: The patient is awake, alert, and fully oriented, in no acute distress. HEAD: Normal with no signs of trauma. EYES: PERRL, extraocular movements intact, sclera anicteric, conjunctiva clear. No ptosis. ENT: Ears normal, nares patent, oropharynx clear without exudates NECK: Trachea midline, full range of motion, supple. LUNGS: Breath sounds equal, clear to auscultation bilaterally HEART: Regular rate and rhythm ABDOMEN: Soft, nontender, nondistended, normoactive bowel sounds EXTREMITIES: no edema. NEUROLOGICAL: Normal speech, gait steady PSYCH: Normal mood, normal affect. SKIN: Warm, dry, normal turgor, no rashes or lesions noted Laboratory Results - last 24 hr 01/31/20 02/01/20 02/01/20 17:24 06:40 07:22 WBC 8.4 RBC 4.15 Hgb 12.8 Hct 37.8 MCV 90.9 MCH 30.8 MCHC 33.8 RDW 13.7 Plt Count 184 D MPV 9.1 Absolute Neuts (auto) 4.1 Neutrophils % 49.2 Lymphocytes % 33.1 Monocytes % 12.4 H Eosinophils % 4.8 H Basophils % 0.5 Nucleated RBC % 0 Sodium Potassium Chloride Carbon Dioxide Anion Gap BUN Creatinine Est GFR (CKD-EPI)AfAm Est GFR (CKD-EPI)NonAf POC Glucometer 159 161 Random Glucose Calcium Magnesium Total Bilirubin AST ALT Alkaline Phosphatase Total Protein Albumin 02/01/20 02/01/20 07:22 11:19 WBC RBC Hgb Hct MCV MCH MCHC RDW Plt Count MPV Absolute Neuts (auto) Neutrophils % Lymphocytes % Monocytes % Eosinophils % Basophils % Nucleated RBC % Sodium 137 Potassium 3.8 Chloride 103 Carbon Dioxide 26 Anion Gap 7 L BUN 13.9 Creatinine 0.9 Est GFR (CKD-EPI)AfAm 102.79 Est GFR (CKD-EPI)NonAf 88.69 POC Glucometer 225 Random Glucose 157 H Calcium 8.5 Magnesium 2.3 Total Bilirubin 0.7 AST 30 ALT 33 Alkaline Phosphatase 143 H Total Protein 7.6 Albumin 3.0 L Active Medications Generic Name Dose Route Start Last Admin Trade Name Freq PRN Reason Stop Dose Admin Acetaminophen 650 mg 01/29/20 12:11 02/01/20 08:53 Tylenol - PO 650 mg Q4H PRN Administration FEVER Al Hydroxide/Mg Hydroxide 30 ml 01/28/20 15:13 Mylanta Oral Suspension - PO Q6H PRN DYSPEPSIA Enoxaparin Sodium 40 mg 01/27/20 10:00 02/01/20 10:31 Lovenox - SQ 40 mg DAILY ISAAK Administration Guaifenesin 10 ml 01/30/20 01:48 01/31/20 18:07 Diabetic Tussin Dm - PO 10 mg Q6H PRN Administration COUGH Piperacillin Sod/Tazobactam 50 mls @ 100 mls/hr 01/27/20 10:00 02/01/20 10:31 Sod 3.375 gm/ Dextrose IVPB 100 mls/hr Q8H-IV ISAAK Administration Protocol Insulin Aspart 0 vial 01/27/20 07:00 02/01/20 12:18 Novolog Vial Sliding Scale - SQ 4 unit TIDAC ISAAK Administration Protocol Pantoprazole Sodium 40 mg 01/28/20 16:00 02/01/20 10:31 Protonix - PO 40 mg DAILY ISAAK Administration ASSESSMENT/PLAN: Problem List - Problems (1) Sepsis Assessment/Plan: patient with leukocytosis and + blood and + urine cultures - gram neg bacilli. repeat blood cultures negative to date on zosyn per ID monitor labs, vitals signs echo noted Code(s): A41.9 - SEPSIS, UNSPECIFIED ORGANISM Qualifiers: Sepsis type: sepsis due to unspecified organism Sepsis acute organ dysfunction status: unspecified Qualified Code(s): A41.9 - Sepsis, unspecified organism (2) Chest pain Assessment/Plan: chest pain resolved. troponins negative, Code(s): R07.9 - CHEST PAIN, UNSPECIFIED (3) Bacteremia Assessment/Plan: blood and urine cultures with ecoli on zosyn per ID repeat blood cultures are negative Code(s): R78.81 - BACTEREMIA (4) Diabetes type 2, uncontrolled Assessment/Plan: patient does not take any home medications for diabetes. ha1c shows uncontrolled diabetes with elevated bgms. started on novlog sliding scale. will need ome insulin and teaching how to do a sliding scale. monitor bgms Code(s): E11.65 - TYPE 2 DIABETES MELLITUS WITH HYPERGLYCEMIA (5) Thrombocytopenia Assessment/Plan: improved unclear etiology of low platelets but may be in the setting of sepsis. no prior labs to compare monitor while on lovenox Code(s): D69.6 - THROMBOCYTOPENIA, UNSPECIFIED (6) Dysuria Code(s): R30.0 - DYSURIA (7) UTI (urinary tract infection) Assessment/Plan: sepis in the setting of UTI and now with positive blood cultures. repeat blood cultures neg thus far. uc with lactose ferm negative baccilli. on zosyn Code(s): N39.0 - URINARY TRACT INFECTION, SITE NOT SPECIFIED Qualifiers: Urinary tract infection type: site unspecified Hematuria presence: without hematuria Qualified Code(s): N39.0 - Urinary tract infection, site not specified (8) DVT prophylaxis Assessment/Plan: on lovenox 40mg daily Code(s): Z29.9 - ENCOUNTER FOR PROPHYLACTIC MEASURES, UNSPECIFIED Visit type - Emergency Visit Emergency Visit: Yes ED Registration Date: 01/26/20 Care time: The patient presented to the Emergency Department on the above date and was hospitalized for further evaluation of their emergent condition. - New Patient This patient is new to me today: No - Critical Care Critical Care patient: No - Discharge Referral Referred to [facility] Med P.C.: No - Medication Review Med list reviewed for High Risk Meds patients 65 and older: Yes
[2020-02-02] MEDS ORDERED: PIPERACILLIN/TAZOBACTAM 3.375 GM VIAL IVPB ONE ×2 (01:00→08:35)
[2020-02-02] MEDS ORDERED: DEXTROSE 5%-WATER - 50 ML IVPB ONE ×2 (01:00→08:35)
[2020-02-02] MEDS: PIPERACILLIN/TAZOB 3.375 GM 3.375 GM in DEXTROSE 5%-WATER - 50 ML IVPB SCH ×2 (01:42→09:05)
[2020-02-02 06:18] VITALS: TEMP 98.7
[2020-02-02] MEDS ORDERED: INSULIN (NOVOLOG) ASPART 100 UNITS/ML 10ML VIAL ONE ×3 (06:36→11:07)
[2020-02-02] MEDS: INSULIN SLIDING SCALE (NOVOLOG) 1 VIAL SQ SCH ×2 (06:41→11:42)
--- NOTE | 2020-02-02 08:19 | PN ---
Progress Note, Physician History of Present Illness: Patient is a 64 year old male with a history of DM and Hep C (treated 3 years ago) who presents to the ED on 01/26/2020 for fever and pain with urination. Patient found to have urosepsis and is currently on Zosyn IV and being followed by ID. - Current Medication List Current Medications: Active Medications Acetaminophen (Tylenol -) 650 mg PO Q4H PRN PRN Reason: FEVER Last Admin: 02/01/20 08:53 Dose: 650 mg Documented by: Al Hydroxide/Mg Hydroxide (Mylanta Oral Suspension -) 30 ml PO Q6H PRN PRN Reason: DYSPEPSIA Enoxaparin Sodium (Lovenox -) 40 mg SQ DAILY ISAAK Last Admin: 02/01/20 10:31 Dose: 40 mg Documented by: Guaifenesin (Diabetic Tussin Dm -) 10 ml PO Q6H PRN PRN Reason: COUGH Last Admin: 01/31/20 18:07 Dose: 10 mg Documented by: Piperacillin Sod/Tazobactam (Sod 3.375 gm/ Dextrose) 50 mls @ 100 mls/hr IVPB Q8H-IV ISAAK; Protocol Last Admin: 02/02/20 01:42 Dose: 100 mls/hr Documented by: Insulin Aspart (Novolog Vial Sliding Scale -) 0 vial SQ TIDAC ISAAK; Protocol Last Admin: 02/02/20 06:41 Dose: 2 unit Documented by: Pantoprazole Sodium (Protonix -) 40 mg PO DAILY ISAAK Last Admin: 02/01/20 10:31 Dose: 40 mg Documented by: - Objective Vital Signs: Vital Signs Temperature 98.7 F 02/02/20 06:00 Pulse Rate 62 02/02/20 06:00 Respiratory Rate 18 02/02/20 06:00 Blood Pressure 114/65 02/02/20 06:00 O2 Sat by Pulse Oximetry (%) 95 02/02/20 06:00 Labs: INR, PTT INR 1.37 (0.83-1.09) H 01/26/20 15:38 Problem List - Problems (1) Prophylactic measure Code(s): Z29.9 - ENCOUNTER FOR PROPHYLACTIC MEASURES, UNSPECIFIED (2) Bacteremia Code(s): R78.81 - BACTEREMIA (3) Chest pain Code(s): R07.9 - CHEST PAIN, UNSPECIFIED (4) Diabetes type 2, uncontrolled Code(s): E11.65 - TYPE 2 DIABETES MELLITUS WITH HYPERGLYCEMIA (5) Sepsis Code(s): A41.9 - SEPSIS, UNSPECIFIED ORGANISM Qualifiers: Sepsis type: sepsis due to unspecified organism Sepsis acute organ dysfunction status: unspecified Qualified Code(s): A41.9 - Sepsis, unspecified organism (6) Thrombocytopenia Code(s): D69.6 - THROMBOCYTOPENIA, UNSPECIFIED (7) UTI (urinary tract infection) Code(s): N39.0 - URINARY TRACT INFECTION, SITE NOT SPECIFIED Qualifiers: Urinary tract infection type: site unspecified Hematuria presence: without hematuria Qualified Code(s): N39.0 - Urinary tract infection, site not specified (8) COVID-19 ruled out Code(s): Z03.818 - ENCNTR FOR OBS FOR SUSP EXPSR TO [facility] AGENTS RULED OUT
[2020-02-02 08:40] LABS: BASO % 0.4 % (0-2.0); EOS % 4.5 % (0-4.5); HEMATOCRIT 37.9 % (35.4-49); LYMPH % 28.4 % (8-40); MCHC 34.4 g/dl (32.0-35.9); MEAN CELL VOLUME 90.2 fl (80-96); MEAN PLT VOLUME 8.9 fl (7.5-11.1); MONO % 10.7 % (3.8-10.2); PLATELET COUNT 200 K/MM3 (134-434); RBC 4.21 M/mm3 (4.00-5.60); RDW 13.4 % (11.9-15.9); WHITE BLOOD COUNT 7.7 K/mm3 (4.0-10.0)
[2020-02-02 09:04] LABS: BILIRUBIN,TOTAL 0.7 mg/dL (0.2-1); BLOOD UREA NITROGEN 17.3 mg/dL (7-18); CALCIUM 8.6 mg/dL (8.5-10.1); CREATININE 0.8 mg/dL (0.55-1.3); MAGNESIUM 2.1 mg/dL (1.8-2.4); POTASSIUM 3.9 mmol/L (3.5-5.1); TOT PROT 7.7 g/dl (6.4-8.2)
[2020-02-02] MEDS: PANTOPRAZOLE 40 MG TABLET PO SCH (09:06)
[2020-02-02] MEDS: ENOXAPARIN NA (PORCINE) 40 MG/0.4 ML DISP.SYRIN SQ SCH (09:06)
[2020-02-02 10:59] VITALS: BP 117/79; PULSE 61
--- NOTE | 2020-02-02 11:29 | PN ---
Progress Note, Physician History of Present Illness: stable no new issues - Current Medication List Current Medications: Active Medications Acetaminophen (Tylenol -) 650 mg PO Q4H PRN PRN Reason: FEVER Last Admin: 02/01/20 08:53 Dose: 650 mg Documented by: Al Hydroxide/Mg Hydroxide (Mylanta Oral Suspension -) 30 ml PO Q6H PRN PRN Reason: DYSPEPSIA Enoxaparin Sodium (Lovenox -) 40 mg SQ DAILY [facility] Last Admin: 02/02/20 09:06 Dose: 40 mg Documented by: Cyaifenesin (Diabetic Tussin Dm -) 10 ml PO Q6H PRN PRN Reason: COUGH Last Admin: 01/31/20 18:07 Dose: 10 mg Documented by: Piperacillin Sod/Tazobactam (Sod 3.375 gm/ Dextrose) 50 mls @ 100 mls/hr IVPB Q8H-IV ISAAK; Protocol Last Admin: 02/02/20 09:05 Dose: 100 mls/hr Documented by: Insulin Aspart (Novolog Vial Sliding Scale -) 0 vial SQ TIDAC ISAAK; Protocol Last Admin: 02/02/20 06:41 Dose: 2 unit Documented by: Pantoprazole Sodium (Protonix -) 40 mg PO DAILY [facility] Last Admin: 02/02/20 09:06 Dose: 40 mg Documented by: - Objective Vital Signs: Vital Signs Temperature 98.7 F 02/02/20 10:00 Pulse Rate 61 02/02/20 10:00 Respiratory Rate 18 02/02/20 10:00 Blood Pressure 117/79 02/02/20 10:00 O2 Sat by Pulse Oximetry (%) 97 02/02/20 10:00 Constitutional: Yes: No Distress, Calm Cardiovascular: Yes: S1, S2 Respiratory: Yes: Regular, CTA Bilaterally Gastrointestinal: Yes: Normal Bowel Sounds, Soft Musculoskeletal: Yes: WNL Extremities: Yes: WNL Neurological: Yes: Alert, Oriented Psychiatric: Yes: Alert, Oriented Labs: CBC, BMP 02/02/20 07:22 02/02/20 07:22 INR, PTT INR 1.37 (0.83-1.09) H 01/26/20 15:38 Assessment/Plan Problem List - Problems (1) Sepsis Code(s): A41.9 - SEPSIS, UNSPECIFIED ORGANISM Qualifiers: Sepsis type: sepsis due to unspecified organism Sepsis acute organ dysfunction status: unspecified Qualified Code(s): A41.9 - Sepsis, unspecified organism (2) Bacteremia Code(s): R78.81 - BACTEREMIA (3) Diabetes type 2, uncontrolled Code(s): E11.65 - TYPE 2 DIABETES MELLITUS WITH HYPERGLYCEMIA (4) Thrombocytopenia Code(s): D69.6 - THROMBOCYTOPENIA, UNSPECIFIED (5) Dysuria Code(s): R30.0 - DYSURIA (6) UTI (urinary tract infection) Code(s): N39.0 - URINARY TRACT INFECTION, SITE NOT SPECIFIED Qualifiers: Urinary tract infection type: site unspecified Hematuria presence: without hematuria Qualified Code(s): N39.0 - Urinary tract infection, site not specified plan can stop abx rest as per the team
--- NOTE | 2020-02-02 11:59 | DS ---
Physical Exam: SUBJECTIVE: Patient seen and examined OBJECTIVE: Vital Signs Period Temp Pulse Resp BP Sys/Herbert Pulse Ox Last 24 Hr 98.2 F-98.7 F 47-62 18-18 101-165/58-85 93-98 PHYSICAL EXAM GENERAL: The patient is awake, alert, and fully oriented, in no acute distress. HEAD: Normal with no signs of trauma. EYES: PERRL, extraocular movements intact, sclera anicteric, conjunctiva clear. ENT: Ears normal, nares patent, oropharynx clear without exudates, moist mucous membranes. NECK: Trachea midline, full range of motion, supple. LUNGS: Breath sounds equal, clear to auscultation bilaterally, no wheezes, no crackles, no accessory muscle use. HEART: Regular rate and rhythm, S1, S2 without murmur, rub or gallop. ABDOMEN: Soft, nontender, nondistended, normoactive bowel sounds, no guarding, no rebound, no hepatosplenomegaly, no masses. EXTREMITIES: 2+ pulses, warm, well-perfused, no edema. NEUROLOGICAL: Cranial nerves II through XII grossly intact. Normal speech, gait not observed. PSYCH: Normal mood, normal affect. SKIN: Warm, dry, normal turgor, no rashes or lesions noted. LABS Laboratory Results - last 24 hr 02/01/20 02/02/20 02/02/20 16:47 06:34 07:22 WBC 7.7 RBC 4.21 Hgb 13.0 Hct 37.9 MCV 90.2 MCH 31.0 MCHC 34.4 RDW 13.4 Plt Count 200 MPV 8.9 Absolute Neuts (auto) 4.3 Neutrophils % 56.0 Lymphocytes % 28.4 Monocytes % 10.7 H Eosinophils % 4.5 Basophils % 0.4 Nucleated RBC % 0 Sodium Potassium Chloride Carbon Dioxide Anion Gap BUN Creatinine Est GFR (CKD-EPI)AfAm Est GFR (CKD-EPI)NonAf POC Glucometer 145 154 Random Glucose Calcium Magnesium Total Bilirubin AST ALT Alkaline Phosphatase Total Protein Albumin 02/02/20 02/02/20 07:22 11:42 WBC RBC Hgb Hct MCV MCH MCHC RDW Plt Count MPV Absolute Neuts (auto) Neutrophils % Lymphocytes % Monocytes % Eosinophils % Basophils % Nucleated RBC % Sodium 137 Potassium 3.9 Chloride 104 Carbon Dioxide 26 Anion Gap 6 L BUN 17.3 Creatinine 0.8 Est GFR (CKD-EPI)AfAm 107.89 Est GFR (CKD-EPI)NonAf 93.09 POC Glucometer 183 Random Glucose 145 H Calcium 8.6 Magnesium 2.1 Total Bilirubin 0.7 AST 27 ALT 34 Alkaline Phosphatase 135 H Total Protein 7.7 Albumin 3.0 L HOSPITAL COURSE: Date of Admission:01/26/20 Date of Discharge: 02/02/20 Problem List - Problems (1) Sepsis Assessment/Plan: resolved patient with leukocytosis and + blood and + urine cultures - gram neg bacilli. repeat blood cultures negative to date on zosyn per ID, completed course monitor labs, vitals signs echo noted Code(s): A41.9 - SEPSIS, UNSPECIFIED ORGANISM Qualifiers: Sepsis type: sepsis due to unspecified organism Sepsis acute organ dysfunction status: unspecified Qualified Code(s): A41.9 - Sepsis, unspecified organism (2) Chest pain Assessment/Plan: chest pain resolved. troponins negative, Code(s): R07.9 - CHEST PAIN, UNSPECIFIED (3) Bacteremia Assessment/Plan: blood and urine cultures with ecoli completed course zosyn repeat blood cultures are negative Code(s): R78.81 - BACTEREMIA (4) Diabetes type 2, uncontrolled Assessment/Plan: patient does not take any home medications for diabetes. ha1c shows uncontrolled diabetes with elevated bgms. started on novlog sliding scale. diabetic supplies and teaching done prior to dc f/u with pcp in 2 weeks Code(s): E11.65 - TYPE 2 DIABETES MELLITUS WITH HYPERGLYCEMIA (5) Thrombocytopenia Assessment/Plan: resolved Code(s): D69.6 - THROMBOCYTOPENIA, UNSPECIFIED (6) Dysuria resolved Code(s): R30.0 - DYSURIA (7) UTI (urinary tract infection) Assessment/Plan: sepis in the setting of UTI and now with positive blood cultures. repeat blood cultures neg thus far. uc with lactose ferm negative baccilli. completed zosyn Code(s): N39.0 - URINARY TRACT INFECTION, SITE NOT SPECIFIED Qualifiers: Urinary tract infection type: site unspecified Hematuria presence: without hematuria Qualified Code(s): N39.0 - Urinary tract infection, site not specified (8) DVT prophylaxis Assessment/Plan: on lovenox 40mg daily with in hopsital Code(s): Z29.9 - ENCOUNTER FOR PROPHYLACTIC MEASURES, UNSPECIFIED medcially stable for dc to home Minutes to complete discharge: 35 Discharge Summary Problems reviewed: Yes Reason For Visit: URINARY TRACT INFECTION DYSURIA SEPSIS Current Active Problems Bacteremia (Acute) COVID-19 ruled out (Acute) Chest pain (Acute) DVT prophylaxis (Acute) Diabetes type 2, uncontrolled (Acute) Dysuria (Acute) Prophylactic measure (Acute) Sepsis (Acute) Thrombocytopenia (Acute) UTI (urinary tract infection) (Acute) Condition: Improved - Instructions Diet, Activity, Other Instructions: DISCHARGE YOUR VISIT You came to the hospital because developed a urinary tract infection. You were treated with IV antibiotics and you improved. The infectious disease doctor saw you and you do not need to continue antibiotics at home. You blood sugar was very high and you will need to start taking insulin at home. Follow with your primary care provider to follow the blood sugar levels. MEDICATIONS Please continue to take your home medications as prescribed. There was some changes Novolog Insulin Sliding Scale Check Blood sugar BEFORE all meals and BEFORE bed If BS is: <60 drink some juice and recheck in an hour 100-150 no insulin 151-200 2u of insulin 201-250 4u of insulin 251-300 6u of insulin 301-350 8u of insulin 351-400 10u of insulin >401 call doctor and give 12 u of insulin DIET You should follow a diabetic diet. No concentrated sweet. A diet will be included in you discharge papers ADDITIONAL CARE Please make an appointment to see your primary care provider, 2 week from today to follow your blood sugars ADDITIONAL INFORMATION Please call 911 or come directly to the emergency department if you experience unusual headache, vision change, shortness of breath, chest pain, numbness, tingling, loss of alertness/awareness, loss of function, unusual bleeding or any alarming symptoms. Thank you for allowing me to care for you. Dinesh Phan, ACNP, [facility] [phone] Disposition: HOME - Home Medications Comprehensive Discharge Medication List: Ambulatory Orders NK [No Known Home Medication] 01/26/20 Prescription Drug Monitoring Program (I-STOP) results: I-STOP not reviewed Problem List - Problems (1) Prophylactic measure Code(s): Z29.9 - ENCOUNTER FOR PROPHYLACTIC MEASURES, UNSPECIFIED (2) Bacteremia Assessment/Plan: resolved with abx Code(s): R78.81 - BACTEREMIA (3) Chest pain Assessment/Plan: resolved. no acute cardiac events Code(s): R07.9 - CHEST PAIN, UNSPECIFIED (4) Diabetes type 2, uncontrolled Code(s): E11.65 - TYPE 2 DIABETES MELLITUS WITH HYPERGLYCEMIA (5) Sepsis Code(s): A41.9 - SEPSIS, UNSPECIFIED ORGANISM Qualifiers: Sepsis type: sepsis due to unspecified organism Sepsis acute organ dysfunction status: unspecified Qualified Code(s): A41.9 - Sepsis, unspecified organism (6) Thrombocytopenia Code(s): D69.6 - THROMBOCYTOPENIA, UNSPECIFIED (7) UTI (urinary tract infection) Code(s): N39.0 - URINARY TRACT INFECTION, SITE NOT SPECIFIED Qualifiers: Urinary tract infection type: site unspecified Hematuria presence: without hematuria Qualified Code(s): N39.0 - Urinary tract infection, site not specified (8) COVID-19 ruled out Code(s): Z03.818 - ENCNTR FOR OBS FOR SUSP EXPSR TO [facility] AGENTS RULED OUT This patient is new to me today: Yes Date on this admission: 02/02/20 Emergency Visit: Yes ED Registration Date: 01/26/20 Care time: The patient presented to the Emergency Department on the above date and was hospitalized for further evaluation of their emergent condition. Critical Care patient: No - Discharge Referral Referred to [facility] Med P.C.: No
== END 2020-02-02 13:35 | disposition home or self-care (01) | DRG 872 ==
LOC: JER 14:50 → JERBED 17:24 → J5S 19:34
PROVIDERS: ATTEND Nurse Practitioner Acute Care
DX: A41.9 Sepsis, unspecified organism (principal); N39.0 Urinary tract infection, site not specified; E87.2 Acidosis; N17.9 Acute kidney failure, unspecified; E11.65 Type 2 diabetes mellitus with hyperglycemia; L80 Vitiligo; N18.9 Chronic kidney disease, unspecified; D69.6 Thrombocytopenia, unspecified
CPT/HCPCS: 36415; 71045-TC-FY; 76775-TC; 76856-TC; 80053; 80061; 81003; 82550; 82803; 82962; 83036; 83605; 83721; 83735; 84100; 84443; 84484; 85025; 85610; 85730; 87040; 87086; 87186; 93005; 93010; 93306-TC; 99291; G0008; J0131; Q2036; U0003